=== PATIENT | male | born 1945 | race Caucasian/White ===

== ENCOUNTER 2018-04-08 05:13 | Inpatient (IN) | payer MEDICARE, SELFPAY ==
[2018-04-08] VITALS (19 sets, daily range): BP systolic 104–126; BP diastolic 55–75; PULSE 82–115; RESP 14–18; TEMP 36.6–37.7; O2SAT 94–98; BMI 25.9; BMI 26.6
--- NOTE | 2018-04-08 | COL._PTH ---
PATIENT: FREDO EMANUEL LOC: MS3 U#:[id number] AGE/SX: 73/M ROOM: PA308 RE04/08/[address]: Dr. Wilmer Tirado MD : 1945 BED: 1 DIS: 04/14/2018 SPEC #: [id number] RECD: 04/08/18 11:10 STATUS: LORRAINE REAdenike #: [id number] ROSETTA: 04/08/18 00:[address]: Wilmer Tirado DEPT: SURGICAL PATHOLOGY RECD BY: Estelle Sanches ENTERED: 04/08/18 12:39 SP TYPE: COLON OTHR DR: Dr. Teo Monsalve MD Tissues: A - Ileum, NOS B - Colon, NOS C - APPENDIX (INCIDENTAL) D - Colon Donuts E - Colon Donuts Procedures: Frozen Section (charge) Surgery Specimen Level III Surgery Specimen Level IV Surgery Specimen Level HEADER OPERATION: Laparoscopic mobilization of splenic flexure PRE-OP DIAGNOSIS: Sigmoid mass TISSUE SUBMITTED: A ? Nodule, terminal ileum adjacent to cancer, B ? Sigmoid colon, C ? Appendix, D ? Proximal donut, E ? Distal donut FROZEN SECTION DIAGNOSIS A. Nodule, terminal ileum adjacent to cancer: Negative for carcinoma. SJ:megan 04/08/18 MICROSCOPIC DIAGNOSIS A. Nodule, terminal ileum adjacent to cancer: Pieces of fibroadipose tissue with chronic inflammation. Negative for carcinoma. B. 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 Focal lymphatic invasion is noted. Six out of twenty lymph nodes positive for metastatic carcinoma. See cancer summary below. C. Appendix: Appendix, no pathologic diagnosis. Periappendiceal adipose tissue with congestion and acute inflammation. See comment. D. Proximal donut: Colonic donut, no pathologic diagnosis. E. Distal donut: No pathologic diagnosis. COLON CANCER SUMMARY: Specimen ? sigmoid colon Procedure - sigmoidectomy Specimen length ? 16 cm Tumor site ? sigmoid colon Tumor size - ~4 cm in greatest dimension. Please see comment. Macroscopic tumor perforation ? cannot be determined. See comment. Histologic type ? 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 Histologic grade ? high grade Histologic features suggestive of Microsatellite Instability: Intratumoral lymphocytic response (tumor lymphocytic response) ? mild to moderate Peritumoral lymphocytic response (Crohn-like response) - none Tumor subtype and differentiation: Mucinous tumor component ? 70% Medullary tumor component - not present High histologic grade ? poorly differentiated ? 30% Microscopic tumor extension ? tumor invades through the muscularis propria into the subserosal adipose tissue. Margins ? proximal and distal margins, free of tumor. Circumferential or mesenteric margin ? the tumor is at least 1.5 cm away from the circumferential margin. Lateral margin ? not applicable Treatment effect ? no known presurgical therapy Lymph-vascular invasion ? present. Perineural invasion ? not indentified. Tumor deposits ? indeterminate. Type of polyp in which invasive carcinoma arose ? see comment Lymph nodes: Number of lymph nodes examined - 31 Number of lymph nodes involved - 6 Distant metastasis ? not applicable Additional pathologic findings ? extensive diverticulitis with ruptured diverticula. Ancillary studies: See microsatellite instability study by IHC ([id number]) for complete details. Microsatellite instability - Negative (no loss of mismatch protein; no microsatellite instability detected). Immunohistochemistry Studies for Mismatch Repair Proteins: MLH1 - Intact nuclear positivity, tumor cells MSH2 - Intact nuclear positivity, tumor cells MSH6 - Intact nuclear positivity, tumor cells PMS2 - Intact nuclear positivity, tumor cells Mutational Analysis ? not performed PATHOLOGIC STAGE: pT3 pN2a Mx The above summary is in compliance with [employer] [place] [employer] (CAP) Cancer Protocols Checklist and [place] [employer] Committee on Cancer (AJCC), Staging Manual, 8th Ed. SJ:megan 04/15/18 COMMENT B. Open resection margin shows focal area of ulceration, inflammation and negative for carcinoma. Focal area of tubular adenomatous changes noted is adjacent to the tumor. The tumor might have started in the area of ruptured diverticula. No gross mucosal tumor is identified. Most of the tumor is present in the pericolonic adipose tissue. The largest focus of metastatic carcinoma in the lymph node measures 1.2 cm in greatest dimension. Extranodal extension is not seen. 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 C. The entire appendix is examined. This case is discussed with Dr. Tirado on 04/11/18. Case has been reviewed in consultation with Dr. Barth who concurs with the above diagnosis. IDC:AM MICROSCOPIC DESCRIPTION Slides are reviewed. GROSS DESCRIPTION A - Received fresh for frozen section diagnosis labeled with the patient's name is a specimen designated nodule terminal adjacent to cancer. The specimen consists of two pieces of leyva-pink soft tissue measuring in aggregate 1.5 x 2 x 0.3 cm. The entire specimen is submitted for frozen section diagnosis in one cassette. / SJ:megan 04/08/18 B - Received in fixative is one container labeled with the patient's name and designated sigmoid colon. The specimen consists of a segment of colon with attached pericolonic adipose tissue measuring 16 cm in length. The attached pericolonic adipose tissue measures up to 6 cm in thickness. One resection margin is stapled and the other resection margin is opened. The pericolonic adipose tissue is markedly dense and is inked black. No mucosal lesion is identified. Sections reveal multiple diverticula and many of them appear to be ruptured. The tissue adjacent to the ruptured diverticula show leyva-yellow fibroadipose, dense cut surfaces. Sections of pericolonic adipose tissue reveal a few lymph nodes. Model Builder sections are submitted in eight cassettes as follows: 1 ? resection margins, stapled resection margin is inked black, 2 & 3 ? diverticula, 4 & 5 ? area of ruptured diverticula, 6-8 ? pericolonic adipose tissue with possible lymph nodes. / SJ:megan 04/09/18 Sections of pericolonic adipose tissue reveal a mucoidy, grayish irregular mass which approximately measures 4 cm in greatest dimension. No gross connection with overlying mucosa is noted. Sections are submitted as follows: 9-11 ? possible tumor mass, 12-15 ? serosal resection margin, 16 ? one bisected lymph node, 17 ? multiple lymph nodes, 18 - one bisected lymph node, 19 ? multiple lymph nodes, 20 ? 1 bisected lymph node. / SJ:megan 04/11/18 More sections are submitted as follows: 21 ? multiple lymph nodes, 22 - multiple lymph nodes, 23 ? one bisected lymph node, 24 - one bisected lymph node, 25 - one serially sectioned lymph node. / : 04/12/18 C - Received is one container labeled with the patient's name and designated appendix. The specimen consists of an appendix measuring 5 cm in length and up to 0.6 cm in diameter. The attached periappendiceal adipose tissue measures up to 2 cm in width. The lumen is pin point. No fecalith is identified. Model Builder sections are submitted in one cassette. / : 04/08/18 The rest of the specimen is submitted in four more cassettes as follows: 2 ? rest of the appendix, 35 ? periappendiceal adipose tissue. / : 04/12/18 D - Received in fixative is one container labeled with the patient's name and designated proximal donut. The specimen consists of a donut-shaped piece of colonic tissue measuring 2.5 x 1 x 0.5 cm. A few sutures are noted. The entire specimen is submitted in one cassette. / : 04/08/18 E - Received in fixative is one container labeled with the patient's name and designated distal donut. The specimen consists of a donut-shaped piece of colonic tissue measuring 1.8 x 1.8 x 1.5 cm. No lesion is identified. Model Builder sections are submitted in one cassette. / : 04/08/18 TC:0 CPT: 84564, 33594, 96452, 34143 x3
--- NOTE | 2018-04-08 | IMM_PTH ---
PATIENT: FREDO EMANUEL LOC: MS3 U#:[id number] AGE/SX: 73/M ROOM: MS308 RE04/08/[address]: Dr. Wilmer Tirado MD : 1945 BED: 1 DIS: 04/14/2018 SPEC #: [id number] RECD: 04/12/18 13:14 STATUS: LORRAINE REQ #: [id number] ROSETTA: 04/08/18 00:[address]: Wilmer Tirado DEPT: IMMUNOHISTOCHEMISTRY RECD BY: Estelle Sanches ENTERED: 04/12/18 13:18 SP TYPE: IMMUNO OTHR DR: Dr. Teo Monsalve MD Tissues: B - Sigmoid colon biopsy Procedures: Synapto (add) MSH2 (add) MLH-1 (add) MSH6 (add) Anti-PMS2 (add) CD31 (add) CD56 (add) CHROMO (add) CK20 (add) CK8 (add) LEY-2 (add) KI-67 (add) P53 (add) FACTOR VIII (add) CDX2 (add) CK7 (initial) PHYSICIAN & [place] [id number] SPECIMEN INFORMATION: Tissue Source: B ? Sigmoid colon Clinical Info: Sigmoid mass Specimen Number: [id number] B10, B11, B17 CPT code: 85844, 54397 x19 METHODOLOGY: Deparaffinized sections of prefer/formalin-fixed tissue or PAP/DQ stained slides are incubated with monoclonal/polyclonal antibodies/oligonucleotide probes. Localization is made via biotin free immunoperoxidase method. Appropriate controls are performed and reacted as expected. Results on target cell population are indicated in the following table: RESULTS: ANTIBODY / CLONE RESULT Block B10 CK7 (OV-TL12/30) negative CK8 (85pdkpN12) positive CK20 (KS20.8) positive CDX2 ([id number]) positive CD56 (123C3.D5) negative Chromo (LK2H10) positive, focal Synapto (polyclonal) positive, focal COLON CANCER PROFILE (Prognostic Markers) Ki-67 (30-9) positive, high P53 (DO-7) negative MSH2 (25D12) positive MSH6 (44) positive MLH-1 (M1) positive PMS2 ([id number]) positive LEY-2 (SP21) positive Block B11 CD31 (VENICE/70A) positive Factor VIII (R Ag) positive Block B17 CD56 (123C3.D5) negative Chromo (LK2H10) negative Synapto (polyclonal) negative CK8 (64jgenL09) positive These tests were developed and their performance characteristics determined by [facility]. They may not have been cleared or approved by the U.S. Food and Drug Administration. The FDA has determined that such clearance or approval is not necessary. INTERPRETATION: B. 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 Focal angiolymphatic invasion is noted (block B11). Metastatic carcinoma in the lymph nodes is consistent with poorly differentiated carcinoma with signet ring cell features. Result of Microsatellite Instability Study: Negative (no loss of mismatch protein; no microsatellite instability detected). SJ:megan 04/15/18 Case has been reviewed in consultation with Dr. Barth who concurs with the above diagnosis. IDC:AM
--- NOTE | 2018-04-08 | COL._PTH ---
PATIENT: FREDO EMANUEL LOC: MS3 U#:[id number] AGE/SX: 73/M ROOM: OK308 RE04/08/[address]: Dr. Wilmer Tirado MD : 1945 BED: 1 DIS: 04/14/2018 SPEC #: [id number] RECD: 04/08/18 11:10 STATUS: LORRAINE REAdenike #: [id number] ROSETTA: 04/08/18 00:[address]: Wilmer Tirado DEPT: SURGICAL PATHOLOGY RECD BY: Estelle Sanches ENTERED: 04/08/18 12:39 SP TYPE: COLON OTHR DR: Dr. Teo Monsalve MD Tissues: A - Ileum, NOS B - Colon, NOS C - APPENDIX (INCIDENTAL) D - Colon Donuts E - Colon Donuts Procedures: Frozen Section (charge) Surgery Specimen Level III Surgery Specimen Level IV Surgery Specimen Level HEADER OPERATION: Laparoscopic mobilization of splenic flexure PRE-OP DIAGNOSIS: Sigmoid mass TISSUE SUBMITTED: A ? Nodule, terminal ileum adjacent to cancer, B ? Sigmoid colon, C ? Appendix, D ? Proximal donut, E ? Distal donut FROZEN SECTION DIAGNOSIS A. Nodule, terminal ileum adjacent to cancer: Negative for carcinoma. SJ:megan 04/08/18 MICROSCOPIC DIAGNOSIS A. Nodule, terminal ileum adjacent to cancer: Pieces of fibroadipose tissue with chronic inflammation. Negative for carcinoma. B. 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 Focal lymphatic invasion is noted. Six out of 31 lymph nodes positive for metastatic carcinoma. See cancer summary below. C. Appendix: Appendix, no pathologic diagnosis. Periappendiceal adipose tissue with congestion and acute inflammation. See comment. D. Proximal donut: Colonic donut, no pathologic diagnosis. E. Distal donut: No pathologic diagnosis. COLON CANCER SUMMARY: Specimen ? sigmoid colon Procedure - sigmoidectomy Specimen length ? 16 cm Tumor site ? sigmoid colon Tumor size - ~4 cm in greatest dimension. Please see comment. Macroscopic tumor perforation ? cannot be determined. See comment. Histologic type ? 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 Histologic grade ? high grade Histologic features suggestive of Microsatellite Instability: Intratumoral lymphocytic response (tumor lymphocytic response) ? mild to moderate Peritumoral lymphocytic response (Crohn-like response) - none Tumor subtype and differentiation: Mucinous tumor component ? 70% Medullary tumor component - not present High histologic grade ? poorly differentiated ? 30% Microscopic tumor extension ? tumor invades through the muscularis propria into the subserosal adipose tissue. Margins ? proximal and distal margins, free of tumor. Circumferential or mesenteric margin ? the tumor is at least 1.5 cm away from the circumferential margin. Lateral margin ? not applicable Treatment effect ? no known presurgical therapy Lymph-vascular invasion ? present. Perineural invasion ? not identified. Tumor deposits ? indeterminate. Type of polyp in which invasive carcinoma arose ? see comment Lymph nodes: Number of lymph nodes examined - 31 Number of lymph nodes involved - 6 Distant metastasis ? not applicable Additional pathologic findings ? extensive diverticulitis with ruptured diverticula. Ancillary studies: See microsatellite instability study by IHC ([id number]) for complete details. Microsatellite instability - Negative (no loss of mismatch protein; no microsatellite instability detected). Immunohistochemistry Studies for Mismatch Repair Proteins: MLH1 - Intact nuclear positivity, tumor cells MSH2 - Intact nuclear positivity, tumor cells MSH6 - Intact nuclear positivity, tumor cells PMS2 - Intact nuclear positivity, tumor cells Mutational Analysis ? not performed PATHOLOGIC STAGE: pT3 pN2a Mx The above summary is in compliance with [employer] [place] [employer] (CAP) Cancer Protocols Checklist and [place] Joint Committee on Cancer (AJCC), Staging Manual, 8th Ed. SJ:megan 04/15/18 SJ:megan 04/18/18 COMMENT B. Open resection margin shows focal area of ulceration, inflammation and negative for carcinoma. Focal area of tubular adenomatous changes noted is adjacent to the tumor. The tumor might have started in the area of ruptured diverticula. No gross mucosal tumor is identified. Most of the tumor is present in the pericolonic adipose tissue. The largest focus of metastatic carcinoma in the lymph node measures 1.2 cm in greatest dimension. Extranodal extension is not seen. 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 C. The entire appendix is examined. This case is discussed with Dr. Tirado on 04/11/18. Case has been reviewed in consultation with Dr. Barth who concurs with the above diagnosis. IDC:AM MICROSCOPIC DESCRIPTION Slides are reviewed. GROSS DESCRIPTION A - Received fresh for frozen section diagnosis labeled with the patient's name is a specimen designated nodule terminal adjacent to cancer. The specimen consists of two pieces of leyva-pink soft tissue measuring in aggregate 1.5 x 2 x 0.3 cm. The entire specimen is submitted for frozen section diagnosis in one cassette. / SJ:megan 04/08/18 B - Received in fixative is one container labeled with the patient's name and designated sigmoid colon. The specimen consists of a segment of colon with attached pericolonic adipose tissue measuring 16 cm in length. The attached pericolonic adipose tissue measures up to 6 cm in thickness. One resection margin is stapled and the other resection margin is opened. The pericolonic adipose tissue is markedly dense and is inked black. No mucosal lesion is identified. Sections reveal multiple diverticula and many of them appear to be ruptured. The tissue adjacent to the ruptured diverticula show leyva-yellow fibroadipose, dense cut surfaces. Sections of pericolonic adipose tissue reveal a few lymph nodes. Special Education Teaching Assistant sections are submitted in eight cassettes as follows: 1 ? resection margins, stapled resection margin is inked black, 2 & 3 ? diverticula, 4 & 5 ? area of ruptured diverticula, 6-8 ? pericolonic adipose tissue with possible lymph nodes. / SJ:megan 04/09/18 Sections of pericolonic adipose tissue reveal a mucoidy, grayish irregular mass which approximately measures 4 cm in greatest dimension. No gross connection with overlying mucosa is noted. Sections are submitted as follows: 9-11 ? possible tumor mass, 12-15 ? serosal resection margin, 16 ? one bisected lymph node, 17 ? multiple lymph nodes, 18 - one bisected lymph node, 19 ? multiple lymph nodes, 20 ? 1 bisected lymph node. / SJ:megan 04/11/18 More sections are submitted as follows: 21 ? multiple lymph nodes, 22 - multiple lymph nodes, 23 ? one bisected lymph node, 24 - one bisected lymph node, 25 - one serially sectioned lymph node. / : 04/12/18 C - Received is one container labeled with the patient's name and designated appendix. The specimen consists of an appendix measuring 5 cm in length and up to 0.6 cm in diameter. The attached periappendiceal adipose tissue measures up to 2 cm in width. The lumen is pin point. No fecalith is identified. Special Education Teaching Assistant sections are submitted in one cassette. / SJ: 04/08/18 The rest of the specimen is submitted in four more cassettes as follows: 2 ? rest of the appendix, 35 ? periappendiceal adipose tissue. / : 04/12/18 D - Received in fixative is one container labeled with the patient's name and designated proximal donut. The specimen consists of a donut-shaped piece of colonic tissue measuring 2.5 x 1 x 0.5 cm. A few sutures are noted. The entire specimen is submitted in one cassette. / : 04/08/18 E - Received in fixative is one container labeled with the patient's name and designated distal donut. The specimen consists of a donut-shaped piece of colonic tissue measuring 1.8 x 1.8 x 1.5 cm. No lesion is identified. Special Education Teaching Assistant sections are submitted in one cassette. / : 04/08/18 TC:0 CPT: 94748, 86724, 48722, 50337 x3 ADDENDUM ADDENDUM ADDENDUM ADDENDUM ADDENDUM ADDENDUM ADDENDUM 04/08/2019 10:40 ADDENDUM 04/08/2019 10:40 ADDENDUM 04/08/2019 10:40 ADDENDUM 04/08/2019 10:40 ADDENDUM 04/08/2019 10:40 NRAS AND KRAS ANALYSIS FROM [facility] KRAS extended analysis: Positive NRAS extended analysis: Negative Please see complete report in e-chart or EMR for complete details
--- NOTE | 2018-04-08 05:24 | EKG12_ITS ---
Test Reason : PRE-OP Blood Pressure : / mmHG Vent. Rate : 081 BPM Atrial Rate : 081 BPM P-R Int : 172 ms QRS Dur : 068 ms QT Int : 378 ms P-R-T Axes : 018 000 008 degrees QTc Int : 439 ms Normal sinus rhythm Normal ECG Confirmed by LUDWIN HOOVER, RYLEY ([id number]), food editor HERB ARGUETA ([id number]) on 04/11/2018 2:24:55 PM Referred By: Wilmer Tirado Confirmed By:RYLEY MASCORRO MD
[2018-04-08 06:16] LABS: Hematocrit 37.9 % (40-54); Hemoglobin 12.4 g/dl (13.0-16.5); Mean Corp Hgb Conc 32.7 g/gl (32-36); Mean Corpuscular Hgb 27.5 pg (27.0-32.0); Mean Platelet Vol. 10.3 fl (6.2-12.0); Platelet Count 320 K/mm3 (150-450); RBC Distribution Width CV 13.9 % (11.6-14.6); RBC Distribution Width SD 42.2 fl (35.1-43.9); Red Blood Count 4.51 M/mm3 (4.6-6.2)
[2018-04-08 06:21] LABS: Scan Indicated on CBC? Y/N NO
[2018-04-08] MEDS: levoFLOXacin IV 500 MG/100 ML BAG 100 MG IV (06:32)
--- NOTE | 2018-04-08 07:59 | OP.PCM_ITS ---
Report of Operation Date of Procedure: 04/08/18 Pre-Operative Diagnosis: Sigmoid mass Post-Operative Diagnosis: Same Surgery/Procedure Performed:: Cystoscopy and bilateral ureteral catheter placements Description of Surgical Findings:: 73-year-old male has a large mass in the sigmoid colon is can undergo resection by general surgery, they have asked me to place bilateral stents to help him assist with the surgery, the patient was under anesthesia in dorsal lithotomy position the penis and testicles were prepped and draped in usual sterile fashion he was uncircumcised penis is normal testicles are normal I then went into the urethra with a 21 [place] rigid cystourethroscope the entire length the urethra was normal, the sphincter is normal the prosthetic verumontanum was normal, prostate had bilateral hypertrophy which is normal small median lobe nonobstructive prostate, inside the bladder nice smooth mucosa some mild trabeculation but nothing significant, after right ureteral orifices were normal I cannulated the left ureteral orifice with a Glidewire and a Pollack catheter advanced the Pollack catheter 28 cm up into the kidney, I then cannulated the right ureteral orifice with a Glidewire and a Pollack catheter advanced the Pollack catheter about 26 cm up into the right kidney, pulled the wire out, left the Pollack catheter in place on both the right and left side, placed a Jones catheter, of note the bladder was normal and no tumors or stones seen within the bladder. We secured the Pollack catheters to bag and put a Jones catheter into the bladder patient was then turned over to general surgery to continue with his procedure. Type of Anesthesia:: General Drains: stent b/l - Admit VTE Documentation VTE Present on Admission: No VTE Mechan Device Prophylaxis: SCD's VTE Pharm Prophylaxis ordered?: No Reason prophylaxis not ordered:: Treatment Not Indicated
[2018-04-08] MEDS: Bupivacaine Mpf 0.5% 30 ML VIAL (08:18)
[2018-04-08] MEDS: Lubricating Jelly 60 GM Tube 30 GM TOPICAL (08:18)
[2018-04-08 09:41] LABS: Hemoglobin 11.7 g/dl (13.0-16.5); Mean Corp Hgb Conc 31.6 g/gl (32-36); Mean Corpuscular Hgb 26.8 pg (27.0-32.0); Mean Corpuscular Volume 84.9 fL (80-94); Mean Platelet Vol. 10.2 fl (6.2-12.0); Platelet Count 267 K/mm3 (150-450); Red Blood Count 4.36 M/mm3 (4.6-6.2); White Blood Count 12.1 K/mm3 (4.4-11.0)
[2018-04-08 09:47] LABS: Scan Indicated on CBC? Y/N NO
--- NOTE | 2018-04-08 12:04 | OP.PCM_ITS ---
Report of Operation Date of Procedure: 04/08/18 Pre-Operative Diagnosis: Sigmoid mass, presumed colon cancer Post-Operative Diagnosis: sigmoid mass - nearly obstructive, adherent to right and left pelvis, terminal ileum - frozed section of mesentery of the terminal ileum, negative for malignancy, Surgery/Procedure Performed:: Cystoscopy and bilateral ureteral catheter placements, laparoscopic mobilization of splenic flexure, laparoscopic converted to open low anterior resection with 29 CEEA stapler, appendectomy battery wrecker operator: Harrison Murrieta Type of Anesthesia:: General Anesthesiologist: Yaron Kat - ASA2 Specimen's removed: sigmoid colon, terminal iluem mesentary bx, appendix, prox and distal donuts Drains: stent b/l, NG tube, Jones - 130 urine with morfe urine in stent glove Estimated Blood Loss (mL): 250 Fluids Replaced: 3000 L Description of Procedure: The patient was brought to the operating suite. Sign in was performed verifying patient, site, procedure, position, and DVT prophylaxis with SCDs. Patient received Levaquin 750mg. Preoperative bowel prep of mechanical and antibiotic comprised of GoLYTELY and then neomycin and Flagyl 1 g 3 doses evening before was given. Following induction of general anesthetic, the patient was placed in a modified lithotomy position and care being taken to or by pressure points in the legs and arms. An upper body strap was placed and a upper body warmer was placed. A Jones catheter was placed. A rectal washout was performed with dilute Betadine solution. Cystoscopy was performed and bilateral ureteral catheters were placed by Dr. Ureña under separate dictation. The patient?s abdomen and perineal area were then prepped and draped in the usual fashion. Timeout was performed verifying patient, site, position. Local anesthetic was injected above the umbilicus. Incision made and dissection carried down to the umbilical root fascia. 2 stay sutures were placed. Incision made in the fascia, the peritoneum entered under direct visualization. A 10 mm Carmichael trocar was inserted and secured with the stay sutures. Pneumoperitoneum to 15 mmHg was insufflated. 2 5mm ports were placed in the lower midline and later in the left paramedian position Adhesions were noted in the midline just below the level of the umbilicus and a were taken down using Harmonic scalpel. Visual inspection revealed a normal-appearing liver with no significant abnormalities. The large bulky tumor was seen in the pelvis with adhesions to the left lower quadrant, the right lower quadrant, the anterior midline and a loop of small bowel down towards the terminal ileal area. Given the fact the tumor was so large it does not be able to be completed laparoscopically, I elected to perform mobilization of splenic flexure. This was also challenging given the patient?s body habitus. Part way through mobilization of splenic flexure, a venous bleeder was encountered at which point I elected to open. A midline laparotomy was made encompassing the midline ports and extended down to the fascia. The fascia was opened in the midline. Laparotomy pack was placed and left upper quadrant. The area was then visualized and a venous bleeder at the splenic flexure was identified, clipped proximally and distally. The bleeding part and divided. The splenic flexure was then fully mobilized using harmonic scalpel and blunt and sharp dissection. Dissection was carried down along the left pelvic sidewall including the descending colon to the proximal sigmoid. The loop of terminal ileum which was adherent to the superior right aspect of the colon mass was bluntly dissected off the colon. Along the small bowel mesentery. There was an area of thickened inflammation. This was excised and sent for frozen section. Frozen section demonstrated no malignancy. Cautery was then used to release the adhesions to the lower midline and to help create a plane laterally, but a significant amount of the dissection needed to be done bluntly. Given the degree of inflammation and the inability to visualize around this large mass. Once this was completed laterally, mobilization the avascular plane was undertaken from the ascending colon down to the area of the proximal sigmoid colon. At this point due to the size of the mass encountered, the descending colon, sigmoid was transected with a echelon stapler. The sigmoid music colon was divided sequentially using harmonic scalpel, but then to the point where the large mass was encountered. This could not be further easily mobilized. The mass extended up to the bifurcation of the aorta nearly, with the mass partially retracted sequential division, with division and ligation of the vessels going to the tumor from the inferior mesenteric artery and vein were isolated, divided and ligated with 0 Vicryl ties and clips and divided with Harmonic scalpel. With the mass now being able to be further released down into the pelvis, the distal aspect of the colon was divided with 2 firings of a contour stapler. The specimen was passed off, the distal margin of the passed off. Specimen was opened and demonstrated normal-appearing colon. I performed an appendectomy dividing the mesoappendix with the Harmonic scalpel and the base of the appendix with the regular load stapler. The appendix was removed the right lower quadrant port site. A 29 mm CEA circular stapler anvil was then placed in the descending colon region and a 2-0 Prolene pursestring suture was used to close the bowel around the anvil. The bowel did not easily make it to the pelvis, so therefore, additional mobilization splenic flexure using Harmonic Scalpel was completed with the colon being completely mobilized off to rectus fascia/left kidney. This allowed good reaching of the bowel to the pelvis without tension At this point, I proceeded down to the rectum. Rigid proctoscopy was performed after flooding the pelvis with saline. Insufflation demonstrated no leak at the rectal staple line. The staple line was felt to be approximately 12 cm. Next the 29 CEA stapler was lubricated and placed through the rectum up to the staple line. The spike was then opened just anterior to the previous echelon stapler line and the anvil properly seated onto the stapler and brought down to mid gap. The stapler was fired released and withdrawn from the rectum. The proximal and distal doughnuts were noted to be intact. Repeat proctoscopy was again performed again with the pelvis being flooded with saline. Air left in the rectum with insufflation and there was no intra-abdominal leakage noted. The anastomosis was noted to be at 13 cm from the anal verge Gown and gloves were changed. The pelvis was irrigated and aspirated until clear. The midline fascia was closed with a running 0 PDS suture. Subcutaneous skin was irrigated. Skin was closed with carlos. The patient was taken from lithotomy position and placed in the standard supine position. The Jones was left in place. The ureteral stents were removed and both stents were intact. All sponge and instrument counts were correct. The patient was extubated. The patient was brought to recovery room in stable condition. Urine - 130 - Admit VTE Documentation VTE Present on Admission: No VTE Mechan Device Prophylaxis: SCD's VTE Pharm Prophylaxis ordered?: Yes
[2018-04-08] MEDS: HYDROmorphone PCA 0.2 MG/ML 100 ML BAG 20 MG IV (13:54)
[2018-04-08] MEDS: Lactated Ringers 1,000 ML 100 ML IV (13:55)
[2018-04-09] VITALS (23 sets, daily range): BP systolic 84–118; BP diastolic 50–69; PULSE 86–116; RESP 16–18; TEMP 36.2–37.4; O2SAT 93–98
[2018-04-09] MEDS: Lactated Ringers 1,000 ML 100 ML IV ×3 (00:30→17:07)
[2018-04-09 06:20] LABS: ALB/GLOB Ratio 0.5 RATIO (0.9-2.4); AST(SGOT) 26 U/L (15-37); Alanine Aminotransfer ALT/SGPT 29 U/L (16-61); Albumin, Serum 1.9 g/dL (3.2-5.0); Alkaline Phosphatase 83 U/L (45-117); Anion Gap 9 (5-15); BUN 13 mg/dL (7-18); BUN/Creat Ratio 15.8 RATIO (10-20); Chloride 102 mmol/L (98-107); Creatinine, Serum 0.82 mg/dL (0.70-1.30); EST Glomerular Filtration Rate 97 mL/min (>60); Est Glom Filt Rate - Afr Amer 118 mL/min (>60); Estimated Creatinine Clearance 73.48 ml/min; Globulin 4.1 g/dL (2.2-4.2); Glucose 167 mg/dL (74-106); Potassium 3.9 mmol/L (3.5-5.1); Sodium Level 141 mmol/L (136-145)
[2018-04-09 06:25] LABS: Absolute Lymphocyte Count 1.21 X10^3/ul (0.83-4.51); Absolute Neutrophil Count 10.3 X10^3/uL (2.0-7.7); Basophil# 0.02 X10^3/uL; Basophil% 0.1 % (0-1); Eosinophil# 0.01 X10^3/uL; Eosinophils% 0.1 % (0-5); Hematocrit 35.2 % (40-54); Lymphocyte # 1.21 X10^3/ul (4.0); Mean Corp Hgb Conc 31.3 g/gl (32-36); Mean Corpuscular Hgb 26.8 pg (27.0-32.0); Mean Corpuscular Volume 85.9 fL (80-94); Mean Platelet Vol. 10.3 fl (6.2-12.0); Monocyte# 1.89 X10^3/uL; Monocyte% 14.1 % (0-10); Neutrophil # 10.28 X10^3/uL (2.7-7.7); Neutrophil % 76.6 % (47-70); Platelet Count 352 K/mm3 (150-450); RBC Distribution Width CV 14.4 % (11.6-14.6); RBC Distribution Width SD 45.9 fl (35.1-43.9); White Blood Count 13.4 K/mm3 (4.4-11.0)
[2018-04-09 06:26] LABS: Differential Indicated SCAN CRITERIA MET; POSITIVE COUNT NO; POSITIVE DIFFERENTIAL YES; POSITIVE MORPHOLOGY NO
--- NOTE | 2018-04-09 06:49 | NURSING ---
Attempted to remove 2L NC per Dr. Tirado and pt's O2 sats dropped to high 80s on room air. O2 reapplied and turned down to 1L. Pt currently at 96%. IS encouraged and movement also encouraged for today.
[2018-04-09 07:02] LABS: Differential Comment SCANNED
[2018-04-09] MEDS: levoFLOXacin IV 750 MG/150 ML BAG 100 MG IV (10:29)
[2018-04-09] MEDS: Enoxaparin 40 MG/0.4 ML Syringe SC (10:32)
--- NOTE | 2018-04-09 10:37 | CASEMGMT ---
SEE RN CM LINK: D/C PLAN: Home. No needs identified at this time. -Intro Role of Cm to pt. Pt participated in assessment and answered all questions appropriately. Dany PHILLIPSN RN CM
--- NOTE | 2018-04-09 10:54 | CASEMGMT ---
FRED RN CM LINK: D/C PLAN: Undetermined. -Intro Role of Cm to pt. Pt participated in assessment and answered all questions appropriately. CM to continue to follow for any home-going needs and plan for a safe discharge. Dany BSN RN CM
[2018-04-09] MEDS: Lisinopril 20 MG Tablet PO (11:36)
[2018-04-09] MEDS: Metoprolol(XL)Succ 50 MG Tablet PO (11:41)
[2018-04-09] MEDS: Lactated Ringers 500 ML 999 ML IV ×2 (14:50→23:27)
[2018-04-09 16:10] LABS: Pathologist Review Reviewed
--- NOTE | 2018-04-09 18:19 | PCM.PN.SRG ---
Subjective: incisional pain but otherwise doing well - Physical Exam General: Alert, Oriented x3, Cooperative Lungs: Clear to auscultation, Normal air movement Cardiovascular: Regular rate, Regular Rhythm Abdomen: Soft, Bowel Sounds Not Present, Tender - along incision, Jones catheter with tea-colored urine Vital Signs Temp Pulse Resp BP Pulse Ox 98.9 F 109 H 18 109/63 93 04/09/18 18:11 04/09/18 18:11 04/09/18 18:11 04/09/18 18:11 04/09/18 18:11 Oxygen Flow Rate (L/min) 1 Oxygen Delivery Method Nasal Cannula Weight: 74.979 kg Body Mass Index (BMI) 26.6 Intake and Output for Last 24 Hours 04/07/18 04/08/18 04/09/18 23:59 23:59 23:59 Intake Total 3906 / 3906 3154 / 3154 Output Total 455 / 455 1090 / 1090 Balance 3451 / 3451 2064 / 2064 Laboratory Tests Past 24 Hrs 04/09/18 04/09/18 05:22 05:22 WBC 13.4 H RBC 4.10 L Hgb 11.0 L Hct 35.2 L MCV 85.9 MCH 26.8 L MCHC 31.3 L RDW 14.4 RDW Differential 45.9 H Plt Count 352 MPV 10.3 Immature Gran % (Auto) 0.100 Neut % (Auto) 76.6 H Lymph % (Auto) 9.0 L [place] % (Auto) 14.1 H Eos % (Auto) 0.1 Baso % (Auto) 0.1 Absolute Neuts (auto) 10.3 H Absolute Lymphs (auto) 1.21 Total Counted Not Reportable Differential Comment SCANNED Diff Path Review Reviewed Sodium 141 Potassium 3.9 Chloride 102 Carbon Dioxide 30.0 Anion Gap 9 BUN 13 Creatinine 0.82 Estim Creat Clear Calc 73.48 Est GFR (MDRD) Af Amer 118 Est GFR (MDRD) Non-Af 97 BUN/Creatinine Ratio 15.8 Glucose 167 H Calcium 8.0 L Total Bilirubin 0.60 AST 26 ALT 29 Alkaline Phosphatase 83 Total Protein 6.0 L Albumin 1.9 L Globulin 4.1 Albumin/Globulin Ratio 0.5 L Medical Necessity - Tobacco Use Smoking Status: Current every day smoker Tobacco Use: Chew Assessment/Plan POD # 1 s/p laparoscopic converted to open low anterior resection/sigmoidectomy with splenic flexure mobilization and appendectomy for large fungating sigmoid mass laboratory studies demonstrate a slight decrease in hemoglobin, consistent with the expected blood loss from this complicated surgery. Patient's white blood cell count slightly elevated. For now we will maintain NG tube placement to low intermittent suction. Given the duration and complexity of the case and lack of bowel sounds. I'm comfortable clamping NG tube for patient medications. Patient somewhat hypotensive during the day, we'll bolus IV fluids. Follow urine output, which decreased slightly during the afternoon. Anticipate some degree of third spacing due to the difficulty of the surgery. Will encourage out of bed in chair and ambulation and use of incentive spirometry. We'll maintain SCDs with Lovenox due to risk of DVT
[2018-04-10] VITALS (17 sets, daily range): BP systolic 102–132; BP diastolic 52–75; PULSE 74–89; RESP 16–18; TEMP 36.1–37.1; O2SAT 83–97
[2018-04-10] MEDS: Lactated Ringers 1,000 ML 100 ML IV ×2 (04:56→16:10)
[2018-04-10] MEDS: 0.9% NaCl Peripheral Flush Adult/Peds IV (04:57)
[2018-04-10 06:58] LABS: Absolute Lymphocyte Count 1.24 X10^3/ul (0.83-4.51); Absolute Neutrophil Count 11.4 X10^3/uL (2.0-7.7); Basophil# 0.05 X10^3/uL; Basophil% 0.3 % (0-1); Eosinophil# 0.43 X10^3/uL; Eosinophils% 2.9 % (0-5); Hematocrit 33.3 % (40-54); Hemoglobin 10.1 g/dl (13.0-16.5); Lymphocyte # 1.24 X10^3/ul (4.0); Lymphocyte % 8.3 % (19-41); Mean Corp Hgb Conc 30.3 g/gl (32-36); Mean Corpuscular Hgb 27.6 pg (27.0-32.0); Mean Platelet Vol. 10.2 fl (6.2-12.0); Monocyte# 1.74 X10^3/uL; Monocyte% 11.6 % (0-10); Neutrophil # 11.39 X10^3/uL (2.7-7.7); Neutrophil % 76.3 % (47-70); Platelet Count 332 K/mm3 (150-450); RBC Distribution Width CV 14.6 % (11.6-14.6); RBC Distribution Width SD 47.3 fl (35.1-43.9); Red Blood Count 3.66 M/mm3 (4.6-6.2); White Blood Count 14.9 K/mm3 (4.4-11.0)
[2018-04-10 06:59] LABS: Differential Indicated SCAN CRITERIA MET; POSITIVE COUNT NO; POSITIVE DIFFERENTIAL YES; POSITIVE MORPHOLOGY YES
[2018-04-10 07:11] LABS: ALB/GLOB Ratio 0.4 RATIO (0.9-2.4); AST(SGOT) 26 U/L (15-37); Alanine Aminotransfer ALT/SGPT 25 U/L (16-61); Albumin, Serum 1.7 g/dL (3.2-5.0); Alkaline Phosphatase 81 U/L (45-117); Anion Gap 6 (5-15); BUN 17 mg/dL (7-18); BUN/Creat Ratio 22.6 RATIO (10-20); Calcium,Total 7.8 mg/dL (8.5-10.1); Chloride 104 mmol/L (98-107); Creatinine, Serum 0.75 mg/dL (0.70-1.30); EST Glomerular Filtration Rate 108 mL/min (>60); Est Glom Filt Rate - Afr Amer 131 mL/min (>60); Estimated Creatinine Clearance 60.26 ml/min; Globulin 4.4 g/dL (2.2-4.2); Glucose 127 mg/dL (74-106); Protein, Total 6.1 g/dL (6.4-8.2); Sodium Level 140 mmol/L (136-145)
[2018-04-10] MEDS: Metoprolol(XL)Succ 50 MG Tablet PO (09:23)
[2018-04-10] MEDS: Enoxaparin 40 MG/0.4 ML Syringe SC (09:23)
[2018-04-10] MEDS: HYDROmorphone PCA 0.2 MG/ML 100 ML BAG 20 MG IV (17:27)
--- NOTE | 2018-04-10 18:32 | PN.SURG_ITS ---
Subjective: pain improved, - Physical Exam General: Alert, Oriented x3 Lungs: Clear to auscultation, Normal air movement Cardiovascular: Regular rate, Regular Rhythm Abdomen: Soft, Non Tender, Hypoactive Bowel Sounds, Tender - incisions Vital Signs Temp Pulse Resp BP Pulse Ox 97.2 F L 81 18 111/69 95 04/10/18 16:00 04/10/18 16:00 04/10/18 16:44 04/10/18 16:00 04/10/18 16:10 Oxygen Flow Rate (L/min) 2 Oxygen Delivery Method Room Air Weight: 74.979 kg Body Mass Index (BMI) 26.6 Intake and Output for Last 24 Hours 04/08/18 04/09/18 04/10/18 23:59 23:59 23:59 Intake Total 3906 / 3906 3154 / 3154 2608 / 2608 Output Total 455 / 455 1090 / 1090 1040 / 1040 Balance 3451 / 3451 2064 / 2064 1568 / 1568 Laboratory Tests Past 24 Hrs 04/10/18 04/10/18 06:32 06:32 WBC 14.9 H RBC 3.66 L Hgb 10.1 L Hct 33.3 L MCV 91.0 MCH 27.6 MCHC 30.3 L RDW 14.6 RDW Differential 47.3 H Plt Count 332 MPV 10.2 Immature Gran % (Auto) 0.600 Neut % (Auto) 76.3 H Lymph % (Auto) 8.3 L [place] % (Auto) 11.6 H Eos % (Auto) 2.9 Baso % (Auto) 0.3 Absolute Neuts (auto) 11.4 H Absolute Lymphs (auto) 1.24 Total Counted Not Reportable Diff Path Review May foll Sodium 140 Potassium 4.0 Chloride 104 Carbon Dioxide 30.0 Anion Gap 6 BUN 17 Creatinine 0.75 Estim Creat Clear Calc 60.26 Est GFR (MDRD) Af Amer 131 Est GFR (MDRD) Non-Af 108 BUN/Creatinine Ratio 22.6 H Glucose 127 H Calcium 7.8 L Total Bilirubin 0.30 AST 26 ALT 25 Alkaline Phosphatase 81 Total Protein 6.1 L Albumin 1.7 L Globulin 4.4 H Albumin/Globulin Ratio 0.4 L Medical Necessity - Tobacco Use Smoking Status: Current every day smoker Tobacco Use: Chew Assessment/Plan POD # 2 s/p laparoscopic converted to open low anterior resection/sigmoidectomy with splenic flexure mobilization and appendectomy for large fungating sigmoid mass laboratory studies demonstrate a slight decrease in hemoglobin, consistent with the expected blood loss from this complicated surgery. Patient's white blood cell count slightly elevated. For now we will maintain NG tube placement to low intermittent suction. Given the duration and complexity of the case and lack of bowel sounds. I'm comfortable clamping NG tube for patient medications. Patient somewhat hypotensive during the day, we'll bolus IV fluids. urine clearing-will DC Jones catheterFollow urine output, which decreased slightly during the afternoon. Anticipate some degree of third spacing due to the difficulty of the surgery. Will encourage out of bed in chair and ambulation and use of incentive spirometry. We'll maintain SCDs with Lovenox due to risk of DVT
[2018-04-11] VITALS (10 sets, daily range): BP systolic 127–147; BP diastolic 78–84; PULSE 74–84; RESP 15–18; TEMP 36.6–37.1; O2SAT 93–98
[2018-04-11] MEDS: Lactated Ringers 1,000 ML 100 ML IV (01:50)
[2018-04-11] MEDS: BENZOCAINE/MENTHOL 1 LOZENGE MUCOUS MEM (06:37)
--- NOTE | 2018-04-11 06:37 | NURSING ---
Nasogastric tube removed at this time, patient tolerated well.
[2018-04-11 07:09] LABS: Absolute Lymphocyte Count 1.36 X10^3/ul (0.83-4.51); Absolute Neutrophil Count 10.8 X10^3/uL (2.0-7.7); Basophil# 0.04 X10^3/uL; Basophil% 0.3 % (0-1); Eosinophil# 0.78 X10^3/uL; Eosinophils% 5.5 % (0-5); Hematocrit 31.7 % (40-54); Hemoglobin 9.7 g/dl (13.0-16.5); Lymphocyte # 1.36 X10^3/ul (4.0); Lymphocyte % 9.6 % (19-41); Mean Corp Hgb Conc 30.6 g/gl (32-36); Mean Corpuscular Hgb 26.9 pg (27.0-32.0); Mean Corpuscular Volume 87.8 fL (80-94); Mean Platelet Vol. 9.5 fl (6.2-12.0); Monocyte# 1.07 X10^3/uL; Monocyte% 7.6 % (0-10); Neutrophil # 10.79 X10^3/uL (2.7-7.7); Neutrophil % 76.5 % (47-70); Platelet Count 337 K/mm3 (150-450); RBC Distribution Width CV 14.5 % (11.6-14.6); RBC Distribution Width SD 46.6 fl (35.1-43.9); Red Blood Count 3.61 M/mm3 (4.6-6.2); White Blood Count 14.1 K/mm3 (4.4-11.0)
[2018-04-11 07:13] LABS: POSITIVE COUNT NO; POSITIVE DIFFERENTIAL NO; POSITIVE MORPHOLOGY NO
[2018-04-11 07:33] LABS: ALB/GLOB Ratio 0.4 RATIO (0.9-2.4); AST(SGOT) 31 U/L (15-37); Alanine Aminotransfer ALT/SGPT 26 U/L (16-61); Albumin, Serum 1.8 g/dL (3.2-5.0); Alkaline Phosphatase 93 U/L (45-117); Anion Gap 5 (5-15); BUN 16 mg/dL (7-18); BUN/Creat Ratio 25.6 RATIO (10-20); Calcium,Total 7.8 mg/dL (8.5-10.1); Chloride 102 mmol/L (98-107); Creatinine, Serum 0.62 mg/dL (0.70-1.30); EST Glomerular Filtration Rate 134 mL/min (>60); Est Glom Filt Rate - Afr Amer 162 mL/min (>60); Estimated Creatinine Clearance 60.26 ml/min; Globulin 4.3 g/dL (2.2-4.2); Glucose 110 mg/dL (74-106); Potassium 3.8 mmol/L (3.5-5.1); Protein, Total 6.1 g/dL (6.4-8.2); Sodium Level 140 mmol/L (136-145)
[2018-04-11] MEDS: Metoprolol(XL)Succ 50 MG Tablet PO (09:18)
[2018-04-11] MEDS: Lisinopril 20 MG Tablet PO (09:18)
[2018-04-11] MEDS: Enoxaparin 40 MG/0.4 ML Syringe SC (09:18)
[2018-04-11] MEDS: Ondansetron 4 MG/2 ML Vial IV ×2 (12:37→22:52)
--- NOTE | 2018-04-11 18:04 | PCM.PN.SRG ---
Subjective: Vomited, no flatus - Physical Exam General: Alert, Oriented x3 Lungs: Clear to auscultation, Normal air movement Cardiovascular: Regular rate, Regular Rhythm Abdomen: Soft, Non Tender, Hypoactive Bowel Sounds Vital Signs Temp Pulse Resp BP Pulse Ox 98.8 F 74 18 142/78 H 98 04/11/18 12:00 04/11/18 12:00 04/11/18 12:00 04/11/18 12:00 04/11/18 12:00 Oxygen Flow Rate (L/min) 2 Oxygen Delivery Method Nasal Cannula Weight: 74.979 kg Body Mass Index (BMI) 26.6 Intake and Output for Last 24 Hours 04/09/18 04/10/18 04/11/18 23:59 23:59 23:59 Intake Total 3154 / 3154 3138 / 3138 1017 / 1017 Output Total 1090 / 1090 1440 / 1440 700 / 700 Balance 2064 / 2064 1698 / 1698 317 / 317 Laboratory Tests Past 24 Hrs 04/11/18 04/11/18 06:50 06:50 WBC 14.1 H RBC 3.61 L Hgb 9.7 L Hct 31.7 L MCV 87.8 MCH 26.9 L MCHC 30.6 L RDW 14.5 RDW Differential 46.6 H Plt Count 337 MPV 9.5 Immature Gran % (Auto) 0.500 Neut % (Auto) 76.5 H Lymph % (Auto) 9.6 L [place] % (Auto) 7.6 Eos % (Auto) 5.5 H Baso % (Auto) 0.3 Absolute Neuts (auto) 10.8 H Absolute Lymphs (auto) 1.36 Total Counted Not Reportable Sodium 140 Potassium 3.8 Chloride 102 Carbon Dioxide 33.0 H Anion Gap 5 BUN 16 Creatinine 0.62 L Estim Creat Clear Calc 60.26 Est GFR (MDRD) Af Amer 162 Est GFR (MDRD) Non-Af 134 BUN/Creatinine Ratio 25.6 H Glucose 110 H Calcium 7.8 L Total Bilirubin 0.40 AST 31 ALT 26 Alkaline Phosphatase 93 Total Protein 6.1 L Albumin 1.8 L Globulin 4.3 H Albumin/Globulin Ratio 0.4 L Medical Necessity - Tobacco Use Smoking Status: Current every day smoker Tobacco Use: Chew Assessment/Plan POD # 3 s/p laparoscopic converted to open low anterior resection/sigmoidectomy with splenic flexure mobilization and appendectomy for large fungating sigmoid mass laboratory studies demonstrate a slight decrease in hemoglobin, consistent with the expected blood loss from this complicated surgery. Patient's white blood cell count slightly elevated. NG tube removed, patient vomited. Zofran not very helpful, will try compazine. repeat labs and Xray in am. urine clearing- appropriate I&O's Will encourage out of bed in chair and ambulation and use of incentive spirometry. We'll maintain SCDs with Lovenox due to risk of DVT
[2018-04-11] MEDS: proCHLORPERazine 10 MG/2 ML Vial 5 MG IV (19:28)
[2018-04-12] VITALS (14 sets, daily range): BP systolic 122–144; BP diastolic 66–84; PULSE 71–98; RESP 16–18; TEMP 36.8–37.1; O2SAT 97–100
[2018-04-12] MEDS: proCHLORPERazine 10 MG/2 ML Vial 5 MG IV ×2 (02:40→12:52)
--- NOTE | 2018-04-12 05:00 | RAD_ITS ---
STUDY: X-RAY - ABDOMEN/PELVIS REASON FOR EXAM: Male, 73 years old. Abdominal distention. TECHNIQUE: AP supine and upright views of the abdomen and pelvis. COMPARISON: None. FINDINGS: Increased markings at the lung bases suggestive of bibasilar atelectasis slightly worse on the right side. There is a paralytic ileus of the small intestine with mild gaseous distention. Small amount of gas is seen in the transverse colon. I suspect to linear collections of gas in the upper left psoas region most likely secondary to recent intra-abdominal surgery. The visualized liver, spleen and kidneys are grossly normal in size and morphology. Metallic sutures are seen overlying the lower mid abdomen in keeping with prior surgery. There are degenerative changes of the visualized lumbar spine. RAD/Abd Inc Decub and/or Erect IMPRESSION: Findings suggestive of ileus pattern of the small intestine with a small amount of gas in the transverse colon. Follow-up is recommended. Electronically Signed: Soren Tabares MD at 8:25 EDT Tel [phone], Service support ,
[2018-04-12 06:36] LABS: ALB/GLOB Ratio 0.4 RATIO (0.9-2.4); AST(SGOT) 39 U/L (15-37); Alanine Aminotransfer ALT/SGPT 29 U/L (16-61); Albumin, Serum 1.9 g/dL (3.2-5.0); Alkaline Phosphatase 109 U/L (45-117); Anion Gap 6 (5-15); BUN 14 mg/dL (7-18); Chloride 103 mmol/L (98-107); Creatinine, Serum 0.61 mg/dL (0.70-1.30); EST Glomerular Filtration Rate 139 mL/min (>60); Est Glom Filt Rate - Afr Amer 168 mL/min (>60); Estimated Creatinine Clearance 60.26 ml/min; Globulin 4.4 g/dL (2.2-4.2); Glucose 171 mg/dL (74-106); Potassium 3.8 mmol/L (3.5-5.1); Protein, Total 6.3 g/dL (6.4-8.2); Sodium Level 142 mmol/L (136-145)
[2018-04-12 06:37] LABS: Absolute Lymphocyte Count 1.46 X10^3/ul (0.83-4.51); Absolute Neutrophil Count 14.8 X10^3/uL (2.0-7.7); Basophil# 0.04 X10^3/uL; Basophil% 0.2 % (0-1); Eosinophils% 2.2 % (0-5); Hematocrit 36.9 % (40-54); Hemoglobin 11.4 g/dl (13.0-16.5); Lymphocyte # 1.46 X10^3/ul (4.0); Mean Corp Hgb Conc 30.9 g/gl (32-36); Mean Corpuscular Hgb 26.8 pg (27.0-32.0); Mean Corpuscular Volume 86.6 fL (80-94); Mean Platelet Vol. 9.8 fl (6.2-12.0); Monocyte# 1.53 X10^3/uL; Monocyte% 8.4 % (0-10); Neutrophil # 14.77 X10^3/uL (2.7-7.7); Neutrophil % 80.7 % (47-70); Platelet Count 471 K/mm3 (150-450); RBC Distribution Width CV 14.5 % (11.6-14.6); RBC Distribution Width SD 45.4 fl (35.1-43.9); Red Blood Count 4.26 M/mm3 (4.6-6.2); White Blood Count 18.3 K/mm3 (4.4-11.0)
[2018-04-12 06:47] LABS: Differential Indicated SCAN CRITERIA MET; POSITIVE COUNT NO; POSITIVE DIFFERENTIAL YES; POSITIVE MORPHOLOGY NO
[2018-04-12 06:56] LABS: Differential Comment SCANNED; Platelet Estimate SLT INC (ADEQ)
--- NOTE | 2018-04-12 08:23 | CT_ITS ---
STUDY: CT ABDOMEN AND PELVIS WITH CONTRAST REASON FOR EXAM: Male, 73 years old. Status post sigmoid resection. History of colon cancer. RADIATION DOSAGE (If Supplied By Facility): CTDIvol = ( 11.06 ) mGy, DLP = ( 588.64 ) mGycm TECHNIQUE: Transaxial images were obtained from the dome of the diaphragm to the symphysis pubis with oral contrast. 15ML ml of Gastrografin contrast was administered. Sagittal and coronal images were reconstructed. Individualized dose optimization techniques were used for this CT. COMPARISON: None. FINDINGS: Small bilateral pleural effusions with bibasilar atelectasis and/or early infiltrates. The visualized portions of the heart are within normal limits. Perihepatic and perisplenic fluid. Normal liver. There are surgical clips in the gallbladder fossa consistent with a prior cholecystectomy. Normal spleen. Normal pancreas. Normal bilateral adrenal glands. Normal right kidney. Normal left kidney. Normal visualized stomach. Mildly distended fluid-filled small bowel loops. There is evidence of thickening of the small bowel loops in the distal jejunum and ileum in the right lower quadrant. Small amount of fecal material is seen in the colon. A small bowel obstruction should be ruled out. Prior sigmoid resection with anastomosis in the distal sigmoid colon. The appendix is visualized and appears normal. Normal abdominal aorta. Normal inferior vena cava. Increased markings in the mesenteric fat as well as both perinephric spaces. Postsurgical changes are seen in the left lower quadrant and hemipelvis secondary to sigmoid resection and anastomosis. Air is seen within the urinary bladder most likely secondary to prior Jones catheter placement. There is a right-sided inguinal hernia containing adipose tissue. There are degenerative changes of the visualized lumbar spine. CT/Abdomen/Pel W ORAL Cont Only IMPRESSION: Final suggestive of a least a partial small bowel obstruction with thickened small bowel loops in the distal jejunum and ileum. Postsurgical changes in the rectosigmoid colon as well as increased markings in the mesentery most likely secondary to the recent surgical procedure. Ascites. Electronically Signed: Soren Tabares MD at 11:38 EDT Tel [phone], Service support ,
--- NOTE | 2018-04-12 08:30 | PN.SURG_ITS ---
Subjective: feeling better, passed gas over night - Physical Exam General: Alert, Oriented x3, Cooperative Lungs: Clear to auscultation, Normal air movement Cardiovascular: Regular rate, Regular Rhythm Abdomen: Soft, Non Tender, Hypoactive Bowel Sounds, Distended - mildly Vital Signs Temp Pulse Resp BP Pulse Ox 98.6 F 82 18 144/78 H 100 04/12/18 03:55 04/12/18 03:55 04/12/18 07:00 04/12/18 03:55 04/12/18 07:00 Oxygen Flow Rate (L/min) 2 Oxygen Delivery Method Nasal Cannula Weight: 74.979 kg Body Mass Index (BMI) 26.6 Intake and Output for Last 24 Hours 04/10/18 04/11/18 04/12/18 23:59 23:59 23:59 Intake Total 3138 / 3138 1467 / 1467 706 / 706 Output Total 1440 / 1440 900 / 900 650 / 650 Balance 1698 / 1698 567 / 567 56 / 56 Laboratory Tests Past 24 Hrs 04/12/18 04/12/18 06:00 06:00 WBC 18.3 H RBC 4.26 L Hgb 11.4 L Hct 36.9 L MCV 86.6 MCH 26.8 L MCHC 30.9 L RDW 14.5 RDW Differential 45.4 H Plt Count 471 H MPV 9.8 Immature Gran % (Auto) 0.500 Neut % (Auto) 80.7 H Lymph % (Auto) 8.0 L [place] % (Auto) 8.4 Eos % (Auto) 2.2 Baso % (Auto) 0.2 Absolute Neuts (auto) 14.8 H Absolute Lymphs (auto) 1.46 Total Counted Not Reportable Differential Comment SCANNED Platelet Estimate SLT INC Sodium 142 Potassium 3.8 Chloride 103 Carbon Dioxide 33.0 H Anion Gap 6 BUN 14 Creatinine 0.61 L Estim Creat Clear Calc 60.26 Est GFR (MDRD) Af Amer 168 Est GFR (MDRD) Non-Af 139 BUN/Creatinine Ratio 23.0 H Glucose 171 H Calcium 8.0 L Total Bilirubin 0.50 AST 39 H ALT 29 Alkaline Phosphatase 109 Total Protein 6.3 L Albumin 1.9 L Globulin 4.4 H Albumin/Globulin Ratio 0.4 L Medical Necessity - Tobacco Use Smoking Status: Current every day smoker Tobacco Use: Chew Assessment/Plan POD # 4 s/p laparoscopic converted to open low anterior resection/sigmoidectomy with splenic flexure mobilization and appendectomy for large fungating sigmoid mass laboratory studies demonstrate a slight decrease in hemoglobin, consistent with the expected blood loss from this complicated surgery. Patient's white blood cell count slightly elevated. NG tube removed, patient vomited last night Zofran not very helpful, will try compazine. Xray demonstrated a mild ileus pattern and a sqmall abmount of free are. afebrile but WBC coount increasing - will check CT scan with oral contrast urine clearing- appropriate I&O's Will encourage out of bed in chair and ambulation and use of incentive spirometry. We'll maintain SCDs with Lovenox due to risk of DVT
--- NOTE | 2018-04-12 09:20 | NURSING ---
This nurse instructed pt on drinking oral contrast. Understands instructions. Started drinking at 0900 as indicated on bottle. Did use urinal and walk in verma and then to chair. Sitting up in chair.
[2018-04-12 10:39] LABS: Pathologist Review Reviewed
[2018-04-12] MEDS: Enoxaparin 40 MG/0.4 ML Syringe SC (11:35)
[2018-04-12] MEDS: 0.9% NaCl Peripheral Flush Adult/Peds IV ×2 (11:35→19:52)
[2018-04-12] MEDS: Ondansetron 4 MG/2 ML Vial IV ×2 (11:35→19:52)
[2018-04-12] MEDS: Lisinopril 20 MG Tablet PO (13:49)
[2018-04-12] MEDS: Metoprolol(XL)Succ 50 MG Tablet PO (13:49)
[2018-04-13] VITALS (11 sets, daily range): BP systolic 109–136; BP diastolic 65–80; PULSE 70–76; RESP 16–18; TEMP 36.8–37.7; O2SAT 92–98
[2018-04-13 07:59] LABS: Absolute Lymphocyte Count 1.14 X10^3/ul (0.83-4.51); Absolute Neutrophil Count 9.7 X10^3/uL (2.0-7.7); Basophil# 0.02 X10^3/uL; Basophil% 0.2 % (0-1); Eosinophil# 0.51 X10^3/uL; Eosinophils% 4.1 % (0-5); Hematocrit 33.4 % (40-54); Hemoglobin 10.5 g/dl (13.0-16.5); Lymphocyte # 1.14 X10^3/ul (4.0); Lymphocyte % 9.2 % (19-41); Mean Corp Hgb Conc 31.4 g/gl (32-36); Mean Corpuscular Hgb 27.5 pg (27.0-32.0); Mean Corpuscular Volume 87.4 fL (80-94); Mean Platelet Vol. 10.1 fl (6.2-12.0); Monocyte# 0.93 X10^3/uL; Monocyte% 7.5 % (0-10); Neutrophil # 9.72 X10^3/uL (2.7-7.7); Neutrophil % 78.1 % (47-70); Platelet Count 446 K/mm3 (150-450); RBC Distribution Width CV 14.4 % (11.6-14.6); Red Blood Count 3.82 M/mm3 (4.6-6.2); White Blood Count 12.4 K/mm3 (4.4-11.0)
[2018-04-13 08:15] LABS: POSITIVE COUNT NO; POSITIVE DIFFERENTIAL NO; POSITIVE MORPHOLOGY NO
--- NOTE | 2018-04-13 08:15 | PCM.PN.SRG ---
Subjective: more flatus and 2 bowel movements - Physical Exam General: Alert, Oriented x3, Cooperative Lungs: Diminished - bases Cardiovascular: Regular rate, Regular Rhythm Abdomen: Bowel Sounds Present, Soft, Non Tender, Hypoactive Bowel Sounds Vital Signs Temp Pulse Resp BP Pulse Ox 98.8 F 74 18 109/65 94 04/13/18 05:33 04/13/18 05:33 04/13/18 05:33 04/13/18 05:33 04/13/18 07:24 Oxygen Flow Rate (L/min) 2 Oxygen Delivery Method Nasal Cannula Weight: 74.979 kg Body Mass Index (BMI) 26.6 Intake and Output for Last 24 Hours 04/11/18 04/12/18 04/13/18 23:59 23:59 23:59 Intake Total 1467 / 1467 1357 / 1357 675 / 675 Output Total 900 / 900 1025 / 1025 Balance 567 / 567 332 / 332 675 / 675 Laboratory Tests Past 24 Hrs 04/10/18 04/13/18 04/13/18 06:32 07:00 07:00 WBC Pending RBC Pending Hgb Pending Hct Pending MCV Pending MCH Pending MCHC Pending RDW Pending RDW Differential Pending Plt Count Pending Neut % (Auto) Pending Absolute Neuts (auto) Pending Total Counted Pending Diff Path Review Reviewed Sodium Pending Potassium Pending Chloride Pending Carbon Dioxide Pending Anion Gap Pending BUN Pending Creatinine Pending Est GFR (MDRD) Af Amer Pending Est GFR (MDRD) Non-Af Pending BUN/Creatinine Ratio Pending Glucose Pending Calcium Pending Total Bilirubin Pending AST Pending ALT Pending Alkaline Phosphatase Pending Total Protein Pending Albumin Pending Medical Necessity - Tobacco Use Smoking Status: Current every day smoker Tobacco Use: Chew Assessment/Plan POD # 5 s/p laparoscopic converted to open low anterior resection/sigmoidectomy with splenic flexure mobilization and appendectomy for large fungating sigmoid mass laboratory studies demonstrate a slight decrease in hemoglobin, consistent with the expected blood loss from this complicated surgery. Patient's white blood cell count elevated. WBC count pending NG tube removed, patient vomited last night 2 days previously Xray demonstrated a mild ileus pattern and a small abmount of free air. afebrile but WBC count increasing - CT scan with oral contrast yesterday did not demonstrate a leak or abscess. patient with more flatus and liquid stools. will restart clears. change to oral pain medications. urine clearing- appropriate I&O's Will encourage out of bed in chair and ambulation and use of incentive spirometry. We'll maintain SCDs with Lovenox due to risk of DVT
[2018-04-13 08:27] LABS: ALB/GLOB Ratio 0.4 RATIO (0.9-2.4); AST(SGOT) 74 U/L (15-37); Alanine Aminotransfer ALT/SGPT 49 U/L (16-61); Albumin, Serum 1.8 g/dL (3.2-5.0); Alkaline Phosphatase 133 U/L (45-117); Anion Gap 6 (5-15); BUN 13 mg/dL (7-18); BUN/Creat Ratio 17.9 RATIO (10-20); Calcium,Total 7.6 mg/dL (8.5-10.1); Chloride 102 mmol/L (98-107); Creatinine, Serum 0.73 mg/dL (0.70-1.30); EST Glomerular Filtration Rate 113 mL/min (>60); Est Glom Filt Rate - Afr Amer 136 mL/min (>60); Estimated Creatinine Clearance 60.26 ml/min; Globulin 4.2 g/dL (2.2-4.2); Glucose 145 mg/dL (74-106); Potassium 3.9 mmol/L (3.5-5.1); Sodium Level 141 mmol/L (136-145)
[2018-04-13] MEDS: Metoprolol(XL)Succ 50 MG Tablet PO (09:40)
[2018-04-13] MEDS: Lisinopril 20 MG Tablet PO (09:40)
[2018-04-13] MEDS: Enoxaparin 40 MG/0.4 ML Syringe SC (09:42)
[2018-04-13] MEDS: Ibuprofen 400 MG Tablet PO ×2 (10:53→18:26)
[2018-04-13] MEDS: Ondansetron 4 MG/2 ML Vial IV (17:38)
[2018-04-13] MEDS: 0.9% NaCl Peripheral Flush Adult/Peds IV (17:38)
[2018-04-13] MEDS: proCHLORPERazine 10 MG/2 ML Vial 5 MG IV (23:51)
[2018-04-14 02:03] VITALS: BP 119/76; PULSE 64; RESP 18; TEMP 36.6; O2SAT 92
[2018-04-14] MEDS: Ibuprofen 400 MG Tablet PO ×2 (02:12→08:48)
--- NOTE | 2018-04-14 06:47 | PCM.PN.SRG ---
Subjective: tolerating orals, multiple bowel movements - Physical Exam General: Alert, Oriented x3, Cooperative Lungs: Clear to auscultation, Normal air movement Cardiovascular: Regular rate, No murmurs Abdomen: Bowel Sounds Present, Soft, Non Tender Vital Signs Temp Pulse Resp BP Pulse Ox 98 F 64 18 119/76 92 04/14/18 02:03 04/14/18 02:03 04/14/18 02:03 04/14/18 02:03 04/14/18 02:03 Oxygen Flow Rate (L/min) 2 Oxygen Delivery Method Room Air Weight: 74.979 kg Body Mass Index (BMI) 26.6 Intake and Output for Last 24 Hours 04/12/18 04/13/18 04/14/18 23:59 23:59 23:59 Intake Total 1357 / 1357 1884 / 1884 385 / 385 Output Total 1025 / 1025 600 / 600 Balance 332 / 332 1284 / 1284 385 / 385 Laboratory Tests Past 24 Hrs 04/13/18 04/13/18 07:00 07:00 WBC 12.4 H RBC 3.82 L Hgb 10.5 L Hct 33.4 L MCV 87.4 MCH 27.5 MCHC 31.4 L RDW 14.4 RDW Differential 44.0 H Plt Count 446 MPV 10.1 Immature Gran % (Auto) 0.900 Neut % (Auto) 78.1 H Lymph % (Auto) 9.2 L [place] % (Auto) 7.5 Eos % (Auto) 4.1 Baso % (Auto) 0.2 Absolute Neuts (auto) 9.7 H Absolute Lymphs (auto) 1.14 Total Counted Not Reportable Sodium 141 Potassium 3.9 Chloride 102 Carbon Dioxide 33.0 H Anion Gap 6 BUN 13 Creatinine 0.73 Estim Creat Clear Calc 60.26 Est GFR (MDRD) Af Amer 136 Est GFR (MDRD) Non-Af 113 BUN/Creatinine Ratio 17.9 Glucose 145 H Calcium 7.6 L Total Bilirubin 0.60 AST 74 H ALT 49 Alkaline Phosphatase 133 H Total Protein 6.0 L Albumin 1.8 L Globulin 4.2 Albumin/Globulin Ratio 0.4 L Medical Necessity - Tobacco Use Smoking Status: Current every day smoker Tobacco Use: Chew Assessment/Plan POD # 6 s/p laparoscopic converted to open low anterior resection/sigmoidectomy with splenic flexure mobilization and appendectomy for large fungating sigmoid mass laboratory studies demonstrate a slight decrease in hemoglobin, consistent with the expected blood loss from this complicated surgery. Patient's white blood cell count elevated. WBC count normalized NG tube removed, patient vomited last night 2 days previously Xray demonstrated a mild ileus pattern and a small abmount of free air. afebrile but WBC count increasing - CT scan with oral contrast yesterday did not demonstrate a leak or abscess. patient with more flatus and liquid stools. will restart clears. change to oral pain medications. urine clearing- appropriate I&O's Will encourage out of bed in chair and ambulation and use of incentive spirometry. We'll maintain SCDs with Lovenox due to risk of DVT Will discharge to home
--- NOTE | 2018-04-14 06:49 | DCINST_ITS ---
Discharge Diet: Light diet - advance as tolerated - If you have questions about your diet instructions, please talk to your doctor. Discharge Activity: May Not Drive - for 1 week or while taking narcotic pain meds. May shower in (days): 1 Lifting Restrictions: 10 pounds Call your doctor if your incision/area has: Continuous Slow Oozing, Sudden Increased Bleeding, Increased Pain/ Swelling, Increased Redness, Foul Smelling Discharge Call your doctor if you observe: Fever of 101 or Higher Suture Line Care: Avoid Pulling/Pushing, Avoid Pinching/Bending Additional Dressing/Incision Instructions:: Change or remove dressing in 4 days. Leave steri-strips in place for 1 week. Allergies/Adverse Reactions: Allergies Penicillins Allergy (Verified 04/04/18 14:16) Shortness of breath Medications to take at Discharge Lisinopril [Zestril] 20 mg PO DAILY 03/12/14 Metoprolol(XL)Succ [Toprol Xl (Beta Priscilla)] 50 mg PO DAILY 03/12/14 Ibuprofen [Motrin] 400 mg PO Q4H PRN PRN tablet 04/14/18 Lisinopril [Zestril] 20 mg PO DAILY tablet 04/14/18 Metoprolol(XL)Succ [Toprol Xl (Beta Priscilla)] 50 mg PO DAILY tablet 04/14/18 Oxycodone [Oxyir] 5 mg PO Q4H PRN PRN 7 Days #12 tab 04/14/18 The following prescriptions were given: Oxycodone [Oxyir] 5 mg PO Q4H PRN PRN 7 Days #12 tab PRN Reason: Severe Pain (6-10/10) Primary Care Physician: Teo Monsalve MD [Primary Care Provider] - Test Results: Test results from this visit will be discussed in further detail at your follow- up appointment, if applicable. Please Follow Up With: Wilmer Tirado MD - [phone] When: Call to make an appointment to be seen .
--- NOTE | 2018-04-14 06:51 | DS.PCM_ITS ---
Discharge Date and Diagnosis Date of Admission: 04/08/18 Date of Discharge: 04/14/18 - Primary Discharge Diagnosis colon cancer Hospital Course and Treatment Operations: colectomy Summary of Care Provided: The patient is a 73 year old M an obstructing large sigmoid colon cancer. P The patient underwemt a laparoscopic converted to open low anterior resection/ sigmoidectomy with splenic flexure mobilization and appendectomy for large fungating sigmoid mass laboratory studies demonstrate a slight decrease in hemoglobin, consistent with the expected blood loss from this complicated surgery. Patient's white blood cell count elevated. WBC count normalized NG tube removed, patient vomited last night POD 3 Xray demonstrated a mild ileus pattern and a small abmount of free air. afebrile but WBC count increasing - CT scan with oral contrast yesterday did not demonstrate a leak or abscess. patient with more flatus and liquid stools. Restarted clears. change to oral pain medications. urine clearing- appropriate I&O's Will encourage out of bed in chair and ambulation and use of incentive spirometry. We'll maintain SCDs with Lovenox due to risk of DVT Will discharge to home on POD # 6 Discharge Diet: Light diet - advance as tolerated - If you have questions about your diet instructions, please talk to your doctor. Discharge Activity: May Not Drive - for 1 week or while taking narcotic pain meds. May shower in (days): 1 Call your doctor if your incision/area has: Continuous Slow Oozing, Sudden Increased Bleeding, Increased Pain/ Swelling, Increased Redness, Foul Smelling Discharge Call your doctor if you observe: Fever of 101 or Higher Suture Line Care: Avoid Pulling/Pushing, Avoid Pinching/Bending Additional Dressing/Incision Instructions:: Change or remove dressing in 4 days. Leave steri-strips in place for 1 week. Home Medications: Medications to take at Discharge Lisinopril [Zestril] 20 mg PO DAILY 03/12/14 Metoprolol(XL)Succ [Toprol Xl (Beta Priscilla)] 50 mg PO DAILY 03/12/14 Ibuprofen [Motrin] 400 mg PO Q4H PRN PRN tablet 04/14/18 Lisinopril [Zestril] 20 mg PO DAILY tablet 04/14/18 Metoprolol(XL)Succ [Toprol Xl (Beta Priscilla)] 50 mg PO DAILY tablet 04/14/18 Oxycodone [Oxyir] 5 mg PO Q4H PRN PRN 7 Days #12 tab 04/14/18 Following Prescrptions Were Given to Patient: Oxycodone [Oxyir] 5 mg PO Q4H PRN PRN 7 Days #12 tab PRN Reason: Severe Pain (-07/10) Primary Care Physician: Teo Monsalve MD [Primary Care Provider] - Please Follow Up With: Wilmer Tirado MD - [phone] When: Call to make an appointment to be seen . Medical Necessity - Tobacco Use Smoking Status: Current every day smoker Tobacco Use: Chew Meaningful Use Info Meaningful Use Diagnoses (Choose all that apply): None applicable
[2018-04-14 07:35] VITALS: O2SAT 90
[2018-04-14 08:41] VITALS: BP 126/68; PULSE 73; RESP 18; TEMP 36.8; O2SAT 95
== END 2018-04-14 08:54 | disposition home or self-care (01) | DRG 329 ==
LOC: ACINP 05:15 → MS2 09:36 → MS3 04-12 18:51
PROVIDERS: Urology; Admitting Provider Surgery; Family Provider Family Medicine; PCP Family Medicine; Visit Provider Surgery
PROC: 0DTN0ZZ Resection of Sigmoid Colon, Open Approach (ICD-10-PCS; CPT 44204; principal; 2018-04-08 07:05)
PROC: 0T788DZ Dilation of Bilateral Ureters with Intraluminal Device, Via Natural or Artificial Opening Endoscopic (ICD-10-PCS; 2018-04-08 07:05)
DX: C18.7 Malignant neoplasm of sigmoid colon (principal); E43 Unspecified severe protein-calorie malnutrition; R71.0 Precipitous drop in hematocrit; K56.7 Ileus, unspecified; Z53.31 Laparoscopic surgical procedure converted to open procedure; Z72.0 Tobacco use; Z68.26 Body mass index [BMI] 26.0-26.9, adult
CPT/HCPCS: 36415; 74019; 74176; 80053; 85025; 85027; 86850; 86900; 88302; 88304; 88305; 88309; 88331; 88341; 88342; 93005; 94762; 97802; J7120; A4216; C1769; J1170; J2405

== ENCOUNTER 2018-04-15 08:48 | Emergency (ER) | payer MEDICARE, SELFPAY ==
[2018-04-15 08:53] VITALS: BP 143/79; PULSE 93; RESP 18; TEMP 37; O2SAT 93; BMI 25.8
--- NOTE | 2018-04-15 09:00 | CT_ITS ---
STUDY: CT ABDOMEN AND PELVIS WITH CONTRAST REASON FOR EXAM: Male, 73 years old. History of a prior sigmoid resection. Drainage from surgical site. RADIATION DOSAGE (If Supplied By Facility): CTDIvol = ( 14.68 ) mGy, DLP = ( 983.56 ) mGycm TECHNIQUE: Transaxial images were obtained from the dome of the diaphragm to the symphysis pubis without oral contrast. 100 ml of Isovue 300 contrast was administered. Sagittal and coronal images were reconstructed. Individualized dose optimization techniques were used for this CT. COMPARISON: Comparison is made with prior examination dated April 12, 2018. FINDINGS: Small bilateral pleural effusions with underlying infiltration and/or atelectasis. Coronary artery calcification. There is decreased attenuation of the liver consistent with steatosis. Small amount of residual perihepatic and perisplenic fluid although this has improved as compared to prior study. There are surgical clips in the gallbladder fossa consistent with a prior cholecystectomy. Normal spleen. Normal pancreas. Normal bilateral adrenal glands. Normal right kidney. There is a 2.6 cm cyst in the upper anterior portion of the left kidney. There is a small hiatal hernia. Normal small intestine. History of prior sigmoid resection and anastomosis. There is evidence of a scattered sigmoid diverticula. There is circumferential wall thickening of the descending colon distal to the splenic flexure with increased markings in the surrounding peritoneal fat. Colitis should be ruled out. There are surgical clips in the region of the appendix consistent with a prior appendectomy. Normal abdominal aorta. Normal inferior vena cava. Normal retroperitoneum. Increased markings in the perinephric spaces bilaterally as well as increased markings in the mesenteric fat. This may be related to the postoperative findings. Air is seen within the anterior aspect of the urinary bladder most likely secondary to prior Jones catheter placement. There is a right-sided inguinal hernia containing adipose tissue. There are diffuse degenerative changes of the visualized lumbar spine. CT/Abdomen/Pelvis W IV Cont ONLY IMPRESSION: Interval decrease in the perihepatic and perisplenic fluid. Findings suggestive of colitis of the descending colon distal to the splenic flexure. Left renal cyst. Electronically Signed: Soren Tabares MD at 10:03 EDT Tel [phone], Service support ,
--- NOTE | 2018-04-15 09:09 | ED.VISSUMM ---
- ER Visit Summary Date of Service: 04/15/18 Chief Complaint: Wound check History of Present Illness: The patient is a 73 M who had sigmoid resection colectomy on April 08 secondary to colon cancer. He was discharged home yesterday. Patient noted pink tinged watery drainage from the surgical site today. He denies significant pain and overall states he feels well. Surgery was performed by Dr. Reyes. Physical Examination: Vital signs are unremarkable. Patient sitting upright in bed no acute distress. Head neck examination is unremarkable. Heart is regular rate and rhythm. Lung sounds are clear. Abdomen is soft with appropriate postop tenderness. No guarding or rebound. He has a midline incision with carlos intact. There is pink serosanguineous drainage from the midportion of the wound. I do not feel any local fluid collections or abscesses. Test Results: CBC was a white count of 15.3 with 79% neutrophils. The last 3 white blood cell counts from the hospital were 14.1, 18.3, and 12.4. Chemistry studies are significant for glucose of 169. LFTs show an alk phos of 120 and AST of 39. CT scan abdomen and pelvis with IV contrast reveals a decrease in the perihepatic and perisplenic fluid. There is circumferential wall thickening of the descending colon to the splenic flexure. Emergency Department Course and Treatment: Patient was discussed with Dr. Reyes who had already reviewed his CT scan. He asked that I take out a few extra carlos and packed the wound. Dr. Reyes will see him in the office at 115 tomorrow. Treatment Plan: [] Disposition: Discharge Impression: Postop wound drainage This note was generated with [employer] dictation software. It may contain incorrect words, spelling, and punctuation that were not noted in review of the chart prior to signing ED Disposition - Plan for ED Patient: Chief Complaint: Wound Check Referrals: Teo Monsalve MD [Primary Care Provider] -
[2018-04-15 09:19] LABS: Absolute Lymphocyte Count 1.14 X10^3/ul (0.83-4.51); Absolute Neutrophil Count 12.2 X10^3/uL (2.0-7.7); Basophil# 0.05 X10^3/uL; Basophil% 0.3 % (0-1); Eosinophil# 0.79 X10^3/uL; Eosinophils% 5.2 % (0-5); Hematocrit 33.2 % (40-54); Hemoglobin 10.5 g/dl (13.0-16.5); Lymphocyte # 1.14 X10^3/ul (4.0); Lymphocyte % 7.4 % (19-41); Mean Corp Hgb Conc 31.6 g/gl (32-36); Mean Corpuscular Hgb 27.1 pg (27.0-32.0); Mean Corpuscular Volume 85.8 fL (80-94); Mean Platelet Vol. 9.8 fl (6.2-12.0); Monocyte# 0.99 X10^3/uL; Monocyte% 6.5 % (0-10); Neutrophil # 12.17 X10^3/uL (2.7-7.7); Neutrophil % 79.4 % (47-70); Platelet Count 360 K/mm3 (150-450); RBC Distribution Width CV 14.9 % (11.6-14.6); RBC Distribution Width SD 46.1 fl (35.1-43.9); Red Blood Count 3.87 M/mm3 (4.6-6.2); White Blood Count 15.3 K/mm3 (4.4-11.0)
[2018-04-15 09:22] LABS: POSITIVE COUNT NO; POSITIVE DIFFERENTIAL NO; POSITIVE MORPHOLOGY NO
[2018-04-15 09:32] LABS: AST(SGOT) 39 U/L (15-37); Alanine Aminotransfer ALT/SGPT 36 U/L (16-61); Albumin, Serum 1.9 g/dL (3.2-5.0); Alkaline Phosphatase 120 U/L (45-117); Anion Gap 5 (5-15); BUN 10 mg/dL (7-18); BUN/Creat Ratio 13.5 RATIO (10-20); Bilirubin, Direct 0.18 mg/dL (0.00-0.30); Calcium,Total 7.9 mg/dL (8.5-10.1); Chloride 102 mmol/L (98-107); Creatinine, Serum 0.74 mg/dL (0.70-1.30); EST Glomerular Filtration Rate 110 mL/min (>60); Est Glom Filt Rate - Afr Amer 134 mL/min (>60); Estimated Creatinine Clearance 60.26 ml/min; Globulin 4.3 g/dL (2.2-4.2); Glucose 169 mg/dL (74-106); Protein, Total 6.2 g/dL (6.4-8.2); Sodium Level 139 mmol/L (136-145)
--- NOTE | 2018-04-15 10:45 | ED.DEP ---
ED Disposition - Plan for ED Patient: Disposition: Home or Assisted Living Chief Complaint: Wound Check Instructions: ED Wound Check Post Op No Infec Referrals: Wilmer Tirado MD [STAFF PHYSICIAN] - 04/16/18 1:15 pm
== END 2018-04-15 11:02 | disposition home or self-care (01) ==
PROVIDERS: Emergency Provider Emergency Medicine; Family Provider Family Medicine; PCP Family Medicine
DX: T81.89XA Other complications of procedures, not elsewhere classified, initial encounter (principal); Z85.038 Personal history of other malignant neoplasm of large intestine; I10 Essential (primary) hypertension; Z79.899 Other long term (current) drug therapy; Z87.891 Personal history of nicotine dependence
CPT/HCPCS: 74177; 80048; 80076; 85025; 99285; Q9967

== ENCOUNTER 2018-04-17 15:01 | Inpatient (IN) | payer MEDICARE, SELFPAY ==
[2018-04-17] VITALS (18 sets, daily range): BP systolic 110–135; BP diastolic 70–83; PULSE 73–86; RESP 14–18; TEMP 36.1–37.4; O2SAT 90–99; BMI 24.7; BMI 24.5
--- NOTE | 2018-04-17 | MISC_PTH ---
PATIENT: FREDO EMANUEL LOC: MS3 U#:[id number] AGE/SX: 73/M ROOM: [facility] RE04/17/[address]: Dr. Wilmer Tirado MD : [id number] BED: 1 DIS: 04/25/2018 SPEC #: [id number] RECD: 04/17/18 16:17 STATUS: LORRAINE REQ #: [id number] ROSETTA: 04/17/18 00:[address]: Wilmer Tirado DEPT: SURGICAL PATHOLOGY RECD BY: Wilmer Maurer ENTERED: 04/18/18 06:11 SP TYPE: MISC OTHR DR: Dr. Teo Monsalve MD Tissues: Adipose tissue Procedures: Surgery Specimen Level III HEADER OPERATION: Exploratory laparotomy, intra-abdominal irrigation PRE-OP DIAGNOSIS: Wound dehiscence postcolectomy TISSUE SUBMITTED: Wound fat MICROSCOPIC DIAGNOSIS Wound fat: Pieces of adipose tissue with acute and chronic inflammation, congestion, hemorrhage and reactive changes. 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 MICROSCOPIC DESCRIPTION Slides are reviewed. GROSS DESCRIPTION Received in fixative is one container labeled with the patient's name and designated wound fat. The specimen consists of two pieces of congested soft tissue that in aggregate measure 2.5 x 3 x 0.5 cm. Director Of Event Marketing sections are submitted in one cassette. / JUAN:megan 04/18/18 TC:5 CPT: 79912
[2018-04-17] MEDS: levoFLOXacin IV 500 MG/100 ML BAG 100 MG IV (12:54)
--- NOTE | 2018-04-17 13:40 | CASEMGMT ---
JUANJO LOZADA Face to Face with patient for initial transition planning/care coordination assessment. RN CM introduced self and role at [facility]. Patient sitting on edge of bed, alert and oriented, at bedside. Patient states that he want to discharge and that JUMA David said that HHC is setup. RN CM updated patient that HHC would need to be setup, stated that HHC is needed to assist with putting patient's dorian hose on daily. RN KIERRA explained to patient and that HHC would not be coming daily to put on dorian hose and that patient would need to be home bound. Patient irritated and stated that he would follow-up and complete outpatient therapy and would have neighbor assist with dorian hose. JUANJO LOZADA offered to setup outpatient therapy at [facility], patient's preferred facility for outpatient therapy. Patient stated that he would call and setup his own therapy for when he wanted it. RN CM encouraged patient to call later today and setup outpatient therapy for Sunday 04/22. Patient requested that RN CM update nurse to assist with discharge instruction and his trouble with constipation. CM to follow for discharge planning needs that may arise. Disposition Plan: Patient to discharge home with outpatient therapy, family support, and follow-up plans in place.
--- NOTE | 2018-04-17 15:01 | OP.PCM_ITS ---
Report of Operation Date of Procedure: 04/17/18 Pre-Operative Diagnosis: likely fascial dehissence Post-Operative Diagnosis: fascial dehissence, upper abdomen - fascial tear, not suture breakage, serous intraabdominal fluid, no signs of anastomotic leak Surgery/Procedure Performed:: exploratory laparotomy, irrigation, closure of fascial dehissence informatics coordinator: None Type of Anesthesia:: General Anesthesiologist: Klever Armando - [id number] Specimen's removed: culture, wound, peritoneal/incisional fat. Drains: mary Estimated Blood Loss (mL): 25 Fluids Replaced: 1000 Description of Procedure: The patient was brought to the operating suite. Sign in was performed verifying patient, site, procedure, position, and DVT prophylaxis with SCDs. Patient received 500 mg Levaquin antibiotic for presumed fascial dehiscence with open skin Following induction of general anesthetic, the patient?s abdomen was prepped and draped in the usual fashion with chlorhexidine scrub. Timeout was performed verifying patient, site, position. all carlos were removed. The upper abdominal incision was finger dissected open, revealing omentum present with the fascial dehiscence. The fascial dehiscence demonstrated pulling through the fascia with an intact suture, running from the superior fixation point with the fascia dehisced down to the level the umbilicus. The entire running suture then was removed. Intra- abdominal cavity demonstrated some scant clear to slightly turbid fluid. There were no signs of succus or bile staining. Culture swab for aerobic and anaerobic cultures were obtained. Retractors were placed to visualize the pelvis as best possible without performing extensive removal of the bowel. There were no signs of leakage or abscess in the pelvis. At this time, the abdominal cavity is irrigated with approximately 1 L of fluid. A 15 round Tariq-Rogers drain was placed in the right lower quadrant, secured with a 3-0 nylon suture. Fascia was closed with multiple [id number] interrupted 0 Prolene sutures. subcutaneous skin was irrigated with saline. Skin was loosely reapproximated with 3-0 nylon sutures. Damp saline soaked gauze was packed along the wound. A dressing was placed. An abdominal binder was placed. The patient was brought to recovery room in stable condition.
[2018-04-17] MEDS: HYDROmorphone PCA 0.2 MG/ML 100 ML BAG 20 MG IV (17:52)
[2018-04-17] MEDS: Lactated Ringers 1,000 ML 100 ML IV (18:45)
[2018-04-18] VITALS (20 sets, daily range): BP systolic 95–137; BP diastolic 56–79; PULSE 77–86; RESP 16–18; TEMP 36.5–37.2; O2SAT 92–98
[2018-04-18] MEDS: Lactated Ringers 1,000 ML 100 ML IV ×2 (04:04→16:33)
[2018-04-18 07:18] LABS: Absolute Neutrophil Count 12.2 X10^3/uL (2.0-7.7); Basophil# 0.04 X10^3/uL; Basophil% 0.2 % (0-1); Eosinophil# 0.73 X10^3/uL; Eosinophils% 4.5 % (0-5); Hemoglobin 10.5 g/dl (13.0-16.5); Lymphocyte % 10.5 % (19-41); Mean Corp Hgb Conc 30.9 g/gl (32-36); Mean Corpuscular Hgb 26.9 pg (27.0-32.0); Mean Platelet Vol. 10.1 fl (6.2-12.0); Monocyte# 1.32 X10^3/uL; Monocyte% 8.2 % (0-10); Neutrophil # 12.19 X10^3/uL (2.7-7.7); Neutrophil % 75.7 % (47-70); Platelet Count 480 K/mm3 (150-450); RBC Distribution Width CV 15.5 % (11.6-14.6); RBC Distribution Width SD 48.7 fl (35.1-43.9); Red Blood Count 3.91 M/mm3 (4.6-6.2); White Blood Count 16.1 K/mm3 (4.4-11.0)
[2018-04-18 07:21] LABS: POSITIVE COUNT NO; POSITIVE DIFFERENTIAL NO; POSITIVE MORPHOLOGY NO
[2018-04-18 07:24] LABS: ALB/GLOB Ratio 0.4 RATIO (0.9-2.4); AST(SGOT) 35 U/L (15-37); Alanine Aminotransfer ALT/SGPT 31 U/L (16-61); Albumin, Serum 1.8 g/dL (3.2-5.0); Alkaline Phosphatase 127 U/L (45-117); Anion Gap 5 (5-15); BUN 9 mg/dL (7-18); BUN/Creat Ratio 12.6 RATIO (10-20); Calcium,Total 7.9 mg/dL (8.5-10.1); Chloride 102 mmol/L (98-107); Creatinine, Serum 0.72 mg/dL (0.70-1.30); EST Glomerular Filtration Rate 115 mL/min (>60); Est Glom Filt Rate - Afr Amer 139 mL/min (>60); Estimated Creatinine Clearance 60.26 ml/min; Globulin 4.2 g/dL (2.2-4.2); Glucose 123 mg/dL (74-106); Potassium 4.4 mmol/L (3.5-5.1); Sodium Level 140 mmol/L (136-145)
--- NOTE | 2018-04-18 07:24 | NURSING ---
point of sale associate called, aware of order for PICC line. Will place PICC when she is in the building for another patient.
[2018-04-18] MEDS: levoFLOXacin IV 750 MG/150 ML BAG 100 MG IV (09:04)
[2018-04-18] MEDS: Enoxaparin 40 MG/0.4 ML Syringe SC (09:05)
[2018-04-18] MEDS: Lisinopril 20 MG Tablet PO (09:05)
[2018-04-18] MEDS: Metoprolol(XL)Succ 50 MG Tablet PO (09:05)
[2018-04-18] MEDS: 0.9% NaCl Peripheral Flush Adult/Peds IV (11:17)
--- NOTE | 2018-04-18 12:14 | PCM.PN.SRG ---
Subjective: some incisional pain, no flatus - Physical Exam General: Alert, Oriented x3 Lungs: Clear to auscultation, Normal air movement, Diminished - at basis Cardiovascular: Regular rate, Regular Rhythm Abdomen: Soft, Non Tender, Hypoactive Bowel Sounds, Distended, - - incision open with moist to dry packing removed, some granulation tissue, no signs of recurrent dehiscence/evisceration Vital Signs Temp Pulse Resp BP Pulse Ox 98.9 F 84 16 95/57 L 94 04/18/18 11:09 04/18/18 11:09 04/18/18 11:09 04/18/18 11:09 04/18/18 11:09 Oxygen Flow Rate (L/min) 94 Oxygen Delivery Method Nasal Cannula Weight: 69.4 kg Body Mass Index (BMI) 24.5 Intake and Output for Last 24 Hours 04/16/18 04/17/18 04/18/18 23:59 23:59 23:59 Intake Total 1800 / 1800 1474 / 1474 Output Total 340 / 340 1290 / 1290 Balance 1460 / 1460 184 / 184 Microbiology Past 72 Hours 04/17/18 14:10 Wound Culture - Preliminary Tissue - Abdominal GNR lactose patient representative Laboratory Tests Past 24 Hrs 04/18/18 04/18/18 06:45 06:45 WBC 16.1 H RBC 3.91 L Hgb 10.5 L Hct 34.0 L MCV 87.0 MCH 26.9 L MCHC 30.9 L RDW 15.5 H RDW Differential 48.7 H Plt Count 480 H MPV 10.1 Immature Gran % (Auto) 0.900 Neut % (Auto) 75.7 H Lymph % (Auto) 10.5 L [place] % (Auto) 8.2 Eos % (Auto) 4.5 Baso % (Auto) 0.2 Absolute Neuts (auto) 12.2 H Absolute Lymphs (auto) 1.70 Total Counted Not Reportable Sodium 140 Potassium 4.4 Chloride 102 Carbon Dioxide 33.0 H Anion Gap 5 BUN 9 Creatinine 0.72 Estim Creat Clear Calc 60.26 Est GFR (MDRD) Af Amer 139 Est GFR (MDRD) Non-Af 115 BUN/Creatinine Ratio 12.6 Glucose 123 H Calcium 7.9 L Total Bilirubin 0.30 AST 35 ALT 31 Alkaline Phosphatase 127 H Total Protein 6.0 L Albumin 1.8 L Globulin 4.2 Albumin/Globulin Ratio 0.4 L Medical Necessity - Tobacco Use Smoking Status: Never smoker Assessment/Plan postoperatively #10/10. Status post exploratory laparotomy, reclosure of fascial dehiscence, status post open sigmoid resection with splenic flexure mobilization for large bulky tumor. pathology returned as a 4 cm tumor with 6 out of 31 lymph nodes positive, the largest being a 1.2 cm metastatic nodule. All margins were felt to be appropriate with the closest radial margin 1.5 cm. There was significant. Colonic and peritumoral inflammation along with what was felt to be diverticulitis explaining how the actual pelvic mass was much larger than the tumor size fortunately. 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 fascial dehiscence-patient had significant fluid output on Sunday from the inferior aspect of the incision which was felt to be a subcutaneous infection. With reevaluation of the last 2 days. This was then felt to be truly a dehiscence. He was taken to the OR yesterday, had exploration. Inspection into the pelvis did not completely demonstrate the anastomosis but noted no bile staining or collections worrisome for an anastomotic leak. CT scan obtained on Sunday and the straight no signs of a leak. Patient's fascia was closed with interrupted 0 Prolene [id number] sutures and wound, left back area. Wound appears to be granulating this morning with no further complications noted. We'll continue twice a day packing. malnutrition-patient had lost 40 pounds prior to surgery. He had just started retaking orals on Sunday. After talking to his , she notes that he really had poor oral intake, Sunday, Sunday and Sunday. given the history of malnutrition and now postoperative lack of adequate oral nutrition, we will place PICC line and start TPN, even given the risks. We will start standard central mixture, 20% Intralipid. We will check Accu-Cheks [id number]. We'll repeat laboratory studies in the morning. Will obtain prealbumin level to assess baseline for comparison later on in week area. History of tobacco use.-Patient was using chewing tobacco. Prior to surgery last week. We'll have his encourage patient not to use chewing tobacco or nicotine products throughout this competent healing process. VTE prophylaxis-SCDs and Lovenox, given history of malignancy leukocytosis-postoperatively only obvious abnormality was bilateral atelectasis. Patient with fever over the weekend and mildly elevated white count. We will follow white blood cell count, no signs of anastomotic leak at surgery, no urinary complaints. We will encourage incentive spirometry use. We'll encourage sitting up in a chair and ambulation. Given the fact that the patient had the colon (Timentin for greater than 24 hours. Will maintain patient on Levaquin.
--- NOTE | 2018-04-18 12:21 | PN.SURG_ITS ---
Subjective: some incisional pain, no flatus - Physical Exam General: Alert, Oriented x3 Lungs: Clear to auscultation, Normal air movement, Diminished - at basis Cardiovascular: Regular rate, Regular Rhythm Abdomen: Soft, Non Tender, Hypoactive Bowel Sounds, Distended, - - incision open with moist to dry packing removed, some granulation tissue, no signs of recurrent dehiscence/evisceration Vital Signs Temp Pulse Resp BP Pulse Ox 98.9 F 84 16 95/57 L 94 04/18/18 11:09 04/18/18 11:09 04/18/18 11:09 04/18/18 11:09 04/18/18 11:09 Oxygen Flow Rate (L/min) 94 Oxygen Delivery Method Nasal Cannula Weight: 69.4 kg Body Mass Index (BMI) 24.5 Intake and Output for Last 24 Hours 04/16/18 04/17/18 04/18/18 23:59 23:59 23:59 Intake Total 1800 / 1800 1474 / 1474 Output Total 340 / 340 1290 / 1290 Balance 1460 / 1460 184 / 184 Microbiology Past 72 Hours 04/17/18 14:10 Wound Culture - Preliminary Tissue - Abdominal 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 Laboratory Tests Past 24 Hrs 04/18/18 04/18/18 06:45 06:45 WBC 16.1 H RBC 3.91 L Hgb 10.5 L Hct 34.0 L MCV 87.0 MCH 26.9 L MCHC 30.9 L RDW 15.5 H RDW Differential 48.7 H Plt Count 480 H MPV 10.1 Immature Gran % (Auto) 0.900 Neut % (Auto) 75.7 H Lymph % (Auto) 10.5 L [place] % (Auto) 8.2 Eos % (Auto) 4.5 Baso % (Auto) 0.2 Absolute Neuts (auto) 12.2 H Absolute Lymphs (auto) 1.70 Total Counted Not Reportable Sodium 140 Potassium 4.4 Chloride 102 Carbon Dioxide 33.0 H Anion Gap 5 BUN 9 Creatinine 0.72 Estim Creat Clear Calc 60.26 Est GFR (MDRD) Af Amer 139 Est GFR (MDRD) Non-Af 115 BUN/Creatinine Ratio 12.6 Glucose 123 H Calcium 7.9 L Total Bilirubin 0.30 AST 35 ALT 31 Alkaline Phosphatase 127 H Total Protein 6.0 L Albumin 1.8 L Globulin 4.2 Albumin/Globulin Ratio 0.4 L Medical Necessity - Tobacco Use Smoking Status: Never smoker Assessment/Plan postoperatively #10/10. Status post exploratory laparotomy, reclosure of fascial dehiscence, status post open sigmoid resection with splenic flexure mobilization for large bulky tumor. pathology returned as a 4 cm tumor with 6 out of 31 lymph nodes positive, the largest being a 1.2 cm metastatic nodule. All margins were felt to be appropriate with the closest radial margin 1.5 cm. There was significant. Colonic and peritumoral inflammation along with what was felt to be diverticulitis explaining how the actual pelvic mass was much larger than the tumor size fortunately. 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 fascial dehiscence-patient had significant fluid output on Sunday from the inferior aspect of the incision which was felt to be a subcutaneous infection. With reevaluation of the last 2 days. This was then felt to be truly a dehiscence. He was taken to the OR yesterday, had exploration. Inspection into the pelvis did not completely demonstrate the anastomosis but noted no bile staining or collections worrisome for an anastomotic leak. CT scan obtained on Sunday and the straight no signs of a leak. Patient's fascia was closed with interrupted 0 Prolene [id number] sutures and wound, left back area. Wound appears to be granulating this morning with no further complications noted. We'll continue twice a day packing. malnutrition-patient had lost 40 pounds prior to surgery. He had just started retaking orals on Sunday. After talking to his , she notes that he really had poor oral intake, Sunday, Sunday and Sunday. given the history of malnutrition and now postoperative lack of adequate oral nutrition, we will place PICC line and start TPN, even given the risks. We will start standard central mixture, 20% Intralipid. We will check Accu-Cheks [id number]. We 'll repeat laboratory studies in the morning. Will obtain prealbumin level to assess baseline for comparison later on in week area. History of tobacco use.-Patient was using chewing tobacco. Prior to surgery last week. We'll have his encourage patient not to use chewing tobacco or nicotine products throughout this competent healing process. VTE prophylaxis-SCDs and Lovenox, given history of malignancy leukocytosis-postoperatively only obvious abnormality was bilateral atelectasis. Patient with fever over the weekend and mildly elevated white count. We will follow white blood cell count, no signs of anastomotic leak at surgery, no urinary complaints. We will encourage incentive spirometry use. We 'll encourage sitting up in a chair and ambulation. Given the fact that the patient had the colon (Timentin for greater than 24 hours. Will maintain patient on Levaquin.
[2018-04-18 13:10] LABS: Prealbumin 7.4 mg/dL (20.0-40.0)
[2018-04-18] MEDS: Fat Emulsions 20% 250 ML IV (16:36)
[2018-04-18 17:01] LABS: Bedside Glucose 103 mg/dL (70-110)
[2018-04-18] MEDS: HYDROmorphone PCA 0.2 MG/ML 100 ML BAG 20 MG IV (19:06)
[2018-04-19] VITALS (17 sets, daily range): BP systolic 107–124; BP diastolic 63–73; PULSE 64–75; RESP 12–20; TEMP 36.7–37.4; O2SAT 91–98
[2018-04-19 00:35] LABS: Bedside Glucose 200 mg/dL (70-110)
[2018-04-19] MEDS: Lactated Ringers 1,000 ML 100 ML IV ×3 (02:01→21:10)
--- NOTE | 2018-04-19 04:11 | NURSING ---
Notified lab that even though pt has a PICC, he is receiving TPN and it is not advisable to draw labs from his PICC under these circumstances. Therefore, he will be a draw for them.
[2018-04-19 06:27] LABS: Absolute Lymphocyte Count 0.98 X10^3/ul (0.83-4.51); Absolute Neutrophil Count 9.5 X10^3/uL (2.0-7.7); Basophil# 0.04 X10^3/uL; Basophil% 0.3 % (0-1); Eosinophil# 0.66 X10^3/uL; Eosinophils% 5.2 % (0-5); Hematocrit 33.5 % (40-54); Hemoglobin 10.3 g/dl (13.0-16.5); Lymphocyte # 0.98 X10^3/ul (4.0); Lymphocyte % 7.7 % (19-41); Mean Corp Hgb Conc 30.7 g/gl (32-36); Mean Corpuscular Hgb 26.9 pg (27.0-32.0); Mean Corpuscular Volume 87.5 fL (80-94); Mean Platelet Vol. 9.9 fl (6.2-12.0); Monocyte# 1.34 X10^3/uL; Monocyte% 10.6 % (0-10); Neutrophil # 9.54 X10^3/uL (2.7-7.7); Neutrophil % 75.3 % (47-70); Platelet Count 389 K/mm3 (150-450); RBC Distribution Width CV 15.2 % (11.6-14.6); RBC Distribution Width SD 48.8 fl (35.1-43.9); Red Blood Count 3.83 M/mm3 (4.6-6.2); White Blood Count 12.7 K/mm3 (4.4-11.0)
[2018-04-19 06:28] LABS: POSITIVE COUNT NO; POSITIVE DIFFERENTIAL NO; POSITIVE MORPHOLOGY NO
[2018-04-19 06:41] LABS: ALB/GLOB Ratio 0.4 RATIO (0.9-2.4); AST(SGOT) 21 U/L (15-37); Alanine Aminotransfer ALT/SGPT 23 U/L (16-61); Albumin, Serum 1.6 g/dL (3.2-5.0); Alkaline Phosphatase 104 U/L (45-117); Anion Gap 4 (5-15); BUN 11 mg/dL (7-18); BUN/Creat Ratio 16.4 RATIO (10-20); Calcium,Total 7.7 mg/dL (8.5-10.1); Chloride 99 mmol/L (98-107); Creatinine, Serum 0.67 mg/dL (0.70-1.30); EST Glomerular Filtration Rate 124 mL/min (>60); Est Glom Filt Rate - Afr Amer 150 mL/min (>60); Estimated Creatinine Clearance 60.26 ml/min; Globulin 4.2 g/dL (2.2-4.2); Glucose 184 mg/dL (74-106); Magnesium 2.1 mg/dL (1.6-2.6); Potassium 4.2 mmol/L (3.5-5.1); Protein, Total 5.8 g/dL (6.4-8.2); Sodium Level 137 mmol/L (136-145)
--- NOTE | 2018-04-19 06:41 | PN.SURG_ITS ---
Subjective: scant flatus, some nausea - Physical Exam General: Alert, Oriented x3 Lungs: Clear to auscultation, Normal air movement Cardiovascular: Regular rate, Regular Rhythm Abdomen: Bowel Sounds Present, Soft, Hypoactive Bowel Sounds, Tender - at incisions, wound granulating Vital Signs Temp Pulse Resp BP Pulse Ox 98.2 F 71 16 107/67 94 04/19/18 02:00 04/19/18 02:00 04/19/18 02:00 04/19/18 02:00 04/19/18 02:00 Oxygen Flow Rate (L/min) 1 Oxygen Delivery Method Nasal Cannula Weight: 71.8 kg Body Mass Index (BMI) 24.5 Intake and Output for Last 24 Hours 04/17/18 04/18/18 04/19/18 23:59 23:59 23:59 Intake Total 1800 / 1800 3111 / 3111 1509 / 1509 Output Total 340 / 340 2147 / 2147 360 / 360 Balance 1460 / 1460 964 / 964 1149 / 1149 Microbiology Past 72 Hours 04/17/18 14:10 Gram Stain - Final Tissue - Abdominal Wound Culture - 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 Laboratory Tests Past 24 Hrs 04/18/18 04/18/18 04/18/18 06:45 06:45 06:45 WBC 16.1 H RBC 3.91 L Hgb 10.5 L Hct 34.0 L MCV 87.0 MCH 26.9 L MCHC 30.9 L RDW 15.5 H RDW Differential 48.7 H Plt Count 480 H MPV 10.1 Immature Gran % (Auto) 0.900 Neut % (Auto) 75.7 H Lymph % (Auto) 10.5 L [place] % (Auto) 8.2 Eos % (Auto) 4.5 Baso % (Auto) 0.2 Absolute Neuts (auto) 12.2 H Absolute Lymphs (auto) 1.70 Total Counted Not Reportable Sodium 140 Potassium 4.4 Chloride 102 Carbon Dioxide 33.0 H Anion Gap 5 BUN 9 Creatinine 0.72 Estim Creat Clear Calc 60.26 Est GFR (MDRD) Af Amer 139 Est GFR (MDRD) Non-Af 115 BUN/Creatinine Ratio 12.6 Glucose 123 H Calcium 7.9 L Phosphorus Magnesium Total Bilirubin 0.30 AST 35 ALT 31 Alkaline Phosphatase 127 H Total Protein 6.0 L Albumin 1.8 L Globulin 4.2 Albumin/Globulin Ratio 0.4 L Prealbumin 7.4 L 04/19/18 04/19/18 05:30 05:30 WBC 12.7 H RBC 3.83 L Hgb 10.3 L Hct 33.5 L MCV 87.5 MCH 26.9 L MCHC 30.7 L RDW 15.2 H RDW Differential 48.8 H Plt Count 389 MPV 9.9 Immature Gran % (Auto) 0.900 Neut % (Auto) 75.3 H Lymph % (Auto) 7.7 L [place] % (Auto) 10.6 H Eos % (Auto) 5.2 H Baso % (Auto) 0.3 Absolute Neuts (auto) 9.5 H Absolute Lymphs (auto) 0.98 Total Counted Not Reportable Sodium Pending Potassium Pending Chloride Pending Carbon Dioxide Pending Anion Gap Pending BUN Pending Creatinine Pending Estim Creat Clear Calc Est GFR (MDRD) Af Amer Pending Est GFR (MDRD) Non-Af Pending BUN/Creatinine Ratio Pending Glucose Pending Calcium Pending Phosphorus Pending Magnesium Pending Total Bilirubin Pending AST Pending ALT Pending Alkaline Phosphatase Pending Total Protein Pending Albumin Pending Globulin Albumin/Globulin Ratio Prealbumin POC Glucose 04/18/18 04/18/18 23:41 16:32 POC Glucose 200 H 103 Medical Necessity - Tobacco Use Smoking Status: Never smoker Assessment/Plan postoperatively #11/11. Status post exploratory laparotomy, reclosure of fascial dehiscence, status post open sigmoid resection with splenic flexure mobilization for large bulky tumor. pathology returned as a 4 cm tumor with 6 out of 31 lymph nodes positive, the largest being a 1.2 cm metastatic nodule. All margins were felt to be appropriate with the closest radial margin 1.5 cm. There was significant. Colonic and peritumoral inflammation along with what was felt to be diverticulitis explaining how the actual pelvic mass was much larger than the tumor size fortunately. 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 fascial dehiscence-patient had significant fluid output on Sunday from the inferior aspect of the incision which was felt to be a subcutaneous infection. With reevaluation of the last 2 days. This was then felt to be truly a dehiscence. He was taken to the OR yesterday, had exploration. Inspection into the pelvis did not completely demonstrate the anastomosis but noted no bile staining or collections worrisome for an anastomotic leak. CT scan obtained on Sunday and the no signs of a leak. Patient's fascia was closed with interrupted 0 Prolene [id number] sutures and wound, left back area. Wound appears to be granulating this morning with no further complications noted. We'll continue twice a day packing. malnutrition-patient had lost 40 pounds prior to surgery. He had just started retaking orals on Sunday. After talking to his , she notes that he really had poor oral intake, Sunday, Sunday and Sunday. given the history of malnutrition and now postoperative lack of adequate oral nutrition, we will place PICC line and start TPN, even given the risks. We will start standard central mixture, 20% Intralipid. We will check Accu-Cheks [id number]. We 'll repeat laboratory studies in the morning. obtained prealbumin level to assess baseline for comparison later on in week area. History of tobacco use.-Patient was using chewing tobacco. Prior to surgery last week. We'll have his encourage patient not to use chewing tobacco or nicotine products throughout this competent healing process. VTE prophylaxis-SCDs and Lovenox, given history of malignancy leukocytosis-postoperatively only obvious abnormality was bilateral atelectasis. Patient with fever over the weekend and mildly elevated white count. We will follow white blood cell count, no signs of anastomotic leak at surgery, no urinary complaints. We will encourage incentive spirometry use. We 'll encourage sitting up in a chair and ambulation. Given the fact that the patient had the abdomen open for greater than 24 hours, will maintain patient on Levaquin. culture GNR. - ID pending. Will have physical therapy assist in reconditioning. Once return of bowel function, will likely need Rehab for deconditioning
[2018-04-19 07:50] LABS: Bedside Glucose 191 mg/dL (70-110)
[2018-04-19] MEDS: 0.9% NaCl Peripheral Flush Adult/Peds IV ×2 (08:19→13:48)
--- NOTE | 2018-04-19 10:22 | CASEMGMT ---
JUANJO LOZADA Readmission note. 04/08-04/14/18: DC'd after treatment for colectomy, lap converted to open low anterior resection w/splenic flexure mobilization and appendectomy for colon cancer. Discharged home independently. 04/17/18- Pt presented with fascial dehissence, upper abd. To OR for expl lap, irrigation and closure of fascial dehissence. Pt is on TPN for malnutrition, on O2 but does not have Home O2. Intro role of CM to patient in room. He states he was independent @ home, his is able to assist him. Per pt his drives, is able to assist with f/u appointments. Pt has prescription coverage. No needs identified @ this time. Meg PHILLIPSN RN ACM
[2018-04-19 11:41] LABS: Bedside Glucose 187 mg/dL (70-110)
[2018-04-19] MEDS: Metoprolol(XL)Succ 50 MG Tablet PO (11:45)
[2018-04-19] MEDS: Enoxaparin 40 MG/0.4 ML Syringe SC (11:45)
[2018-04-19] MEDS: Insulin Lispro 100 UNIT/ML INSULN.PEN SC ×2 (11:52→18:13)
[2018-04-19] MEDS: Lisinopril 20 MG Tablet PO (13:41)
[2018-04-19] MEDS: proCHLORPERazine 10 MG/2 ML Vial IV (13:46)
[2018-04-19 18:26] LABS: Bedside Glucose 154 mg/dL (70-110)
[2018-04-20] VITALS (16 sets, daily range): BP systolic 100–136; BP diastolic 61–70; PULSE 63–81; RESP 12–18; TEMP 36.6–37.1; O2SAT 92–97
[2018-04-20] MEDS: Insulin Lispro 100 UNIT/ML INSULN.PEN SC ×4 (00:08→18:14)
[2018-04-20 00:15] LABS: Bedside Glucose 204 mg/dL (70-110)
[2018-04-20] MEDS: Lactated Ringers 1,000 ML 100 ML IV ×2 (06:29→17:16)
[2018-04-20] MEDS: proCHLORPERazine 10 MG/2 ML Vial IV ×2 (06:58→14:15)
--- NOTE | 2018-04-20 09:18 | PCM.PN.SRG ---
Subjective: passing flatus since last night, still some nausea - Physical Exam General: Alert, Oriented x3, Cooperative Lungs: Clear to auscultation, Normal air movement Cardiovascular: Regular rate, Regular Rhythm Abdomen: Bowel Sounds Present, Soft, Non Tender, - - incision with some drainage, repacked, CAMILO drain serous Vital Signs Temp Pulse Resp BP Pulse Ox 98.4 F 72 16 136/70 H 93 04/20/18 06:00 04/20/18 06:00 04/20/18 07:35 04/20/18 06:00 04/20/18 07:35 Oxygen Flow Rate (L/min) 0.5 Oxygen Delivery Method Nasal Cannula Weight: 71.8 kg Body Mass Index (BMI) 24.5 Intake and Output for Last 24 Hours 04/18/18 04/19/18 04/20/18 23:59 23:59 23:59 Intake Total 3111 / 3111 4741 / 4741 2489 / 2489 Output Total 2147 / 2147 3125 / 3125 1810 / 1810 Balance 964 / 964 1616 / 1616 679 / 679 Microbiology Past 72 Hours 04/17/18 14:10 Gram Stain - Final Tissue - Abdominal Wound Culture - Final Escherichia coli Anaerobic Culture - Preliminary Checking for anaerobes, further studies to follow. POC Glucose 04/20/18 04/19/18 04/19/18 00:05 18:13 11:33 POC Glucose 204 H 154 H 187 H Medical Necessity - Tobacco Use Smoking Status: Never smoker Assessment/Plan postoperatively #3/12. Status post exploratory laparotomy, reclosure of fascial dehiscence, status post open sigmoid resection with splenic flexure mobilization for large bulky tumor. pathology returned as a 4 cm tumor with 6 out of 31 lymph nodes positive, the largest being a 1.2 cm metastatic nodule. All margins were felt to be appropriate with the closest radial margin 1.5 cm. There was significant. Colonic and peritumoral inflammation along with what was felt to be diverticulitis explaining how the actual pelvic mass was much larger than the tumor size fortunately. 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 fascial dehiscence-patient had significant fluid output on Sunday from the inferior aspect of the incision which was felt to be a subcutaneous infection. With reevaluation of the last 2 days. This was then felt to be truly a dehiscence. He was taken to the OR yesterday, had exploration. Inspection into the pelvis did not completely demonstrate the anastomosis but noted no bile staining or collections worrisome for an anastomotic leak. CT scan obtained on Sunday and the no signs of a leak. Patient's fascia was closed with interrupted 0 Prolene abssxb-[id number]-[id number] sutures and wound, left back area. Wound appears to be granulating this morning with no further complications noted. We'll continue twice a day packing. he noted passing flatus overnight. We'll restart clear liquids. malnutrition-patient had lost 40 pounds prior to surgery. He had just started retaking orals on Sunday. After talking to his , she notes that he really had poor oral intake, Sunday, Sunday and Sunday. given the history of malnutrition and now postoperative lack of adequate oral nutrition, we will place PICC line and start TPN, even given the risks. We will start standard central mixture, 20% Intralipid. We will check Accu-Cheks [id number]. We'll repeat laboratory studies sunday. we'll start insulins 70/30 twice a day to try to lower overall blood glucose and continue sliding scale. obtained prealbumin level to assess baseline for comparison later on in week area. History of tobacco use.-Patient was using chewing tobacco. Prior to surgery last week. We'll have his encourage patient not to use chewing tobacco or nicotine products throughout this competent healing process. VTE prophylaxis-SCDs and Lovenox, given history of malignancy leukocytosis-postoperatively only obvious abnormality was bilateral atelectasis. Patient with fever over the weekend and mildly elevated white count. We will follow white blood cell count, no signs of anastomotic leak at surgery, no urinary complaints. We will encourage incentive spirometry use. We'll encourage sitting up in a chair and ambulation. culture GNR. - Escherichia coli-resistant to Levaquin, changed to ceftriaxone and Flagyl. Will have physical therapy assist in reconditioning. Once return of bowel function, will likely need Rehab for deconditioning
--- NOTE | 2018-04-20 09:21 | PN.SURG_ITS ---
Subjective: passing flatus since last night, still some nausea - Physical Exam General: Alert, Oriented x3, Cooperative Lungs: Clear to auscultation, Normal air movement Cardiovascular: Regular rate, Regular Rhythm Abdomen: Bowel Sounds Present, Soft, Non Tender, - - incision with some drainage , repacked, CAMILO drain serous Vital Signs Temp Pulse Resp BP Pulse Ox 98.4 F 72 16 136/70 H 93 04/20/18 06:00 04/20/18 06:00 04/20/18 07:35 04/20/18 06:00 04/20/18 07:35 Oxygen Flow Rate (L/min) 0.5 Oxygen Delivery Method Nasal Cannula Weight: 71.8 kg Body Mass Index (BMI) 24.5 Intake and Output for Last 24 Hours 04/18/18 04/19/18 04/20/18 23:59 23:59 23:59 Intake Total 3111 / 3111 4741 / 4741 2489 / 2489 Output Total 2147 / 2147 3125 / 3125 1810 / 1810 Balance 964 / 964 1616 / 1616 679 / 679 Microbiology Past 72 Hours 04/17/18 14:10 Gram Stain - Final Tissue - Abdominal Wound Culture - Final Escherichia coli Anaerobic Culture - Preliminary Checking for anaerobes, further studies to follow. POC Glucose 04/20/18 04/19/18 04/19/18 00:05 18:13 11:33 POC Glucose 204 H 154 H 187 H Medical Necessity - Tobacco Use Smoking Status: Never smoker Assessment/Plan postoperatively #3/12. Status post exploratory laparotomy, reclosure of fascial dehiscence, status post open sigmoid resection with splenic flexure mobilization for large bulky tumor. pathology returned as a 4 cm tumor with 6 out of 31 lymph nodes positive, the largest being a 1.2 cm metastatic nodule. All margins were felt to be appropriate with the closest radial margin 1.5 cm. There was significant. Colonic and peritumoral inflammation along with what was felt to be diverticulitis explaining how the actual pelvic mass was much larger than the tumor size fortunately. 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 fascial dehiscence-patient had significant fluid output on Sunday from the inferior aspect of the incision which was felt to be a subcutaneous infection. With reevaluation of the last 2 days. This was then felt to be truly a dehiscence. He was taken to the OR yesterday, had exploration. Inspection into the pelvis did not completely demonstrate the anastomosis but noted no bile staining or collections worrisome for an anastomotic leak. CT scan obtained on Sunday and the no signs of a leak. Patient's fascia was closed with interrupted 0 Prolene remmaf-ah-bniiz sutures and wound, left back area. Wound appears to be granulating this morning with no further complications noted. We'll continue twice a day packing. he noted passing flatus overnight. We'll restart clear liquids. malnutrition-patient had lost 40 pounds prior to surgery. He had just started retaking orals on Sunday. After talking to his , she notes that he really had poor oral intake, Sunday, Sunday and Sunday. given the history of malnutrition and now postoperative lack of adequate oral nutrition, we will place PICC line and start TPN, even given the risks. We will start standard central mixture, 20% Intralipid. We will check Accu-Cheks [id number]-yhz-[id number]. We 'll repeat laboratory studies sunday. we'll start insulins 70/30 twice a day to try to lower overall blood glucose and continue sliding scale. obtained prealbumin level to assess baseline for comparison later on in week area. History of tobacco use.-Patient was using chewing tobacco. Prior to surgery last week. We'll have his encourage patient not to use chewing tobacco or nicotine products throughout this competent healing process. VTE prophylaxis-SCDs and Lovenox, given history of malignancy leukocytosis-postoperatively only obvious abnormality was bilateral atelectasis. Patient with fever over the weekend and mildly elevated white count. We will follow white blood cell count, no signs of anastomotic leak at surgery, no urinary complaints. We will encourage incentive spirometry use. We 'll encourage sitting up in a chair and ambulation. culture GNR. - Escherichia coli-resistant to Levaquin, changed to ceftriaxone and Flagyl. Will have physical therapy assist in reconditioning. Once return of bowel function, will likely need Rehab for deconditioning
[2018-04-20] MEDS: Lisinopril 20 MG Tablet PO (09:53)
[2018-04-20] MEDS: Enoxaparin 40 MG/0.4 ML Syringe SC (09:53)
[2018-04-20] MEDS: Metoprolol(XL)Succ 50 MG Tablet PO (09:53)
[2018-04-20] MEDS: HYDROmorphone PCA 0.2 MG/ML 100 ML BAG 20 MG IV (10:25)
[2018-04-20 11:21] LABS: Bedside Glucose 190 mg/dL (70-110)
[2018-04-20 16:51] LABS: Bedside Glucose 175 mg/dL (70-110)
[2018-04-20] MEDS: Fat Emulsions 20% 250 ML IV (17:12)
[2018-04-20 18:25] LABS: Bedside Glucose 177 mg/dL (70-110)
[2018-04-20 22:26] LABS: Bedside Glucose 178 mg/dL (70-110)
[2018-04-21] VITALS (14 sets, daily range): BP systolic 112–128; BP diastolic 64–75; PULSE 55–80; RESP 12–18; TEMP 37–37.7; O2SAT 91–95
[2018-04-21] MEDS: Insulin Lispro 100 UNIT/ML INSULN.PEN SC ×4 (00:21→17:25)
[2018-04-21 00:31] LABS: Bedside Glucose 194 mg/dL (70-110)
[2018-04-21] MEDS: Lactated Ringers 1,000 ML 100 ML IV ×2 (04:10→16:47)
[2018-04-21 07:01] LABS: Bedside Glucose 225 mg/dL (70-110)
--- NOTE | 2018-04-21 09:19 | PN.SURG_ITS ---
Subjective: small bowel movement, continued flatus. Still, some nausea - Physical Exam General: Alert, Oriented x3 Lungs: Clear to auscultation, Normal air movement Cardiovascular: Regular rate, Regular Rhythm Abdomen: Bowel Sounds Present, Soft, Tender - along incisions, serous drainage from CAMILO drain Vital Signs Temp Pulse Resp BP Pulse Ox 99.3 F H 65 16 125/75 H 91 04/21/18 07:57 04/21/18 07:57 04/21/18 07:57 04/21/18 07:57 04/21/18 08:10 Oxygen Flow Rate (L/min) 0.5 Oxygen Delivery Method Room Air Weight: 78.5 kg Body Mass Index (BMI) 24.5 Intake and Output for Last 24 Hours 04/19/18 04/20/18 04/21/18 23:59 23:59 23:59 Intake Total 4741 / 4741 4711 / 4711 2949 / 2949 Output Total 3125 / 3125 3260 / 3260 2845 / 2845 Balance 1616 / 1616 1451 / 1451 104 / 104 Microbiology Past 72 Hours 04/17/18 14:10 Gram Stain - Final Tissue - Abdominal Wound Culture - Final Escherichia coli Anaerobic Culture - Preliminary Checking for anaerobes, further studies to follow. POC Glucose 04/21/18 04/21/18 04/20/18 06:41 00:19 22:01 POC Glucose 225 H 194 H 178 H 04/20/18 04/20/18 04/20/18 18:13 11:05 06:53 POC Glucose 177 H 190 H 175 H Medical Necessity - Tobacco Use Smoking Status: Never smoker Assessment/Plan postoperatively #01/11. Status post exploratory laparotomy, reclosure of fascial dehiscence, status post open sigmoid resection with splenic flexure mobilization for large bulky tumor. pathology returned as a 4 cm tumor with 6 out of 31 lymph nodes positive, the largest being a 1.2 cm metastatic nodule. All margins were felt to be appropriate with the closest radial margin 1.5 cm. There was significant. Colonic and peritumoral inflammation along with what was felt to be diverticulitis explaining how the actual pelvic mass was much larger than the tumor size fortunately. 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 fascial dehiscence-patient had significant fluid output on Sunday from the inferior aspect of the incision which was felt to be a subcutaneous infection. With reevaluation of the last 2 days. This was then felt to be truly a dehiscence. He was taken to the OR yesterday, had exploration. Inspection into the pelvis did not completely demonstrate the anastomosis but noted no bile staining or collections worrisome for an anastomotic leak. CT scan obtained on Sunday and the straight no signs of a leak. Patient's fascia was closed with interrupted 0 Prolene qvsuhp-sf-[id number] sutures and wound, left back area. Wound appears to be granulating this morning with no further complications noted. We'll continue twice a day packing. he note improved passing flatus. He has improved bowel sounds. We'll radvanced to full liquids- no fiber, add lean protein. malnutrition-patient had lost 40 pounds prior to surgery. He had just started retaking orals on Sunday. After talking to his , she notes that he really had poor oral intake, Sunday, Sunday and Sunday. given the history of malnutrition and now postoperative lack of adequate oral nutrition, we will place PICC line and start TPN, even given the risks. We will start standard central mixture, 20% Intralipid. We will check Accu-Cheks [id number]. We 'll repeat laboratory studies sunday. we'll start insulins 70/30 twice a day to try to lower overall blood glucose and continue sliding scale. obtained prealbumin level to assess baseline for comparison later on in week area. History of tobacco use.-Patient was using chewing tobacco. Prior to surgery last week. We'll have his encourage patient not to use chewing tobacco or nicotine products throughout this competent healing process. VTE prophylaxis-SCDs and Lovenox, given history of malignancy. patient notes improved overall pain. 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 Patient with fever over the weekend and mildly elevated white count. We will follow white blood cell count, no signs of anastomotic leak at surgery, no urinary complaints. We will encourage incentive spirometry use. We 'll encourage sitting up in a chair and ambulation. culture GNR. - Escherichia coli-resistant to Levaquin, changed to ceftriaxone and Flagyl. Will have physical therapy assist in reconditioning. Once return of bowel function, will likely need Rehab for deconditioning
[2018-04-21] MEDS: Enoxaparin 40 MG/0.4 ML Syringe SC (09:38)
[2018-04-21] MEDS: Metoprolol(XL)Succ 50 MG Tablet PO (09:40)
[2018-04-21] MEDS: Lisinopril 20 MG Tablet PO (09:40)
[2018-04-21] MEDS: oxyCODONE 5 MG Tablet PO (09:42)
[2018-04-21 11:20] LABS: Bedside Glucose 223 mg/dL (70-110)
[2018-04-21] MEDS: proCHLORPERazine 10 MG/2 ML Vial IV ×2 (14:49→21:00)
[2018-04-21 17:35] LABS: Bedside Glucose 198 mg/dL (70-110)
[2018-04-21 21:41] LABS: Bedside Glucose 196 mg/dL (70-110)
[2018-04-22] VITALS (9 sets, daily range): BP systolic 128–137; BP diastolic 79–91; PULSE 70–82; RESP 16; TEMP 36.7–37.6; O2SAT 95–99
[2018-04-22] MEDS: Insulin Lispro 100 UNIT/ML INSULN.PEN SC ×4 (00:05→16:38)
[2018-04-22 00:15] LABS: Bedside Glucose 155 mg/dL (70-110)
[2018-04-22] MEDS: Lactated Ringers 1,000 ML 100 ML IV ×2 (03:53→16:37)
[2018-04-22 05:54] LABS: Absolute Lymphocyte Count 1.04 X10^3/ul (0.83-4.51); Basophil# 0.04 X10^3/uL; Basophil% 0.5 % (0-1); Eosinophil# 0.33 X10^3/uL; Eosinophils% 3.9 % (0-5); Hematocrit 31.6 % (40-54); Hemoglobin 9.8 g/dl (13.0-16.5); Lymphocyte # 1.04 X10^3/ul (4.0); Lymphocyte % 12.4 % (19-41); Mean Corpuscular Hgb 26.6 pg (27.0-32.0); Mean Corpuscular Volume 85.6 fL (80-94); Mean Platelet Vol. 10.2 fl (6.2-12.0); Monocyte# 0.93 X10^3/uL; Monocyte% 11.1 % (0-10); Neutrophil # 5.96 X10^3/uL (2.7-7.7); Neutrophil % 71.1 % (47-70); Platelet Count 340 K/mm3 (150-450); RBC Distribution Width SD 46.7 fl (35.1-43.9); Red Blood Count 3.69 M/mm3 (4.6-6.2); White Blood Count 8.4 K/mm3 (4.4-11.0)
[2018-04-22 06:00] LABS: Bedside Glucose 212 mg/dL (70-110)
[2018-04-22 06:15] LABS: ALB/GLOB Ratio 0.4 RATIO (0.9-2.4); AST(SGOT) 45 U/L (15-37); Alanine Aminotransfer ALT/SGPT 31 U/L (16-61); Albumin, Serum 1.7 g/dL (3.2-5.0); Alkaline Phosphatase 109 U/L (45-117); Anion Gap 7 (5-15); BUN 11 mg/dL (7-18); BUN/Creat Ratio 18.8 RATIO (10-20); Calcium,Total 7.8 mg/dL (8.5-10.1); Chloride 103 mmol/L (98-107); Creatinine, Serum 0.58 mg/dL (0.70-1.30); EST Glomerular Filtration Rate 145 mL/min (>60); Est Glom Filt Rate - Afr Amer 175 mL/min (>60); Estimated Creatinine Clearance 60.26 ml/min; Globulin 4.2 g/dL (2.2-4.2); Glucose 204 mg/dL (74-106); Potassium 4.1 mmol/L (3.5-5.1); Protein, Total 5.9 g/dL (6.4-8.2); Sodium Level 140 mmol/L (136-145)
[2018-04-22 06:35] LABS: POSITIVE COUNT NO; POSITIVE DIFFERENTIAL NO; POSITIVE MORPHOLOGY NO
[2018-04-22] MEDS: Metoprolol(XL)Succ 50 MG Tablet PO (08:55)
[2018-04-22] MEDS: Lisinopril 20 MG Tablet PO (08:55)
[2018-04-22] MEDS: Enoxaparin 40 MG/0.4 ML Syringe SC (08:55)
[2018-04-22] MEDS: 0.9% NaCl Peripheral Flush Adult/Peds IV ×2 (10:02→10:06)
[2018-04-22] MEDS: proCHLORPERazine 10 MG/2 ML Vial IV (10:06)
[2018-04-22 11:20] LABS: Bedside Glucose 227 mg/dL (70-110)
[2018-04-22 17:20] LABS: Bedside Glucose 183 mg/dL (70-110)
[2018-04-22 22:16] LABS: Bedside Glucose 206 mg/dL (70-110)
[2018-04-23] MEDS: Insulin Lispro 100 UNIT/ML INSULN.PEN SC ×4 (00:19→17:29)
[2018-04-23 00:21] LABS: Bedside Glucose 156 mg/dL (70-110)
[2018-04-23 02:15] VITALS: BP 134/93; PULSE 72; RESP 18; TEMP 36.6; O2SAT 96
[2018-04-23] MEDS: Lactated Ringers 1,000 ML 100 ML IV ×2 (03:03→16:44)
[2018-04-23 05:26] LABS: Bedside Glucose 221 mg/dL (70-110)
--- NOTE | 2018-04-23 07:00 | PN.SURG_ITS ---
Subjective: 1 bowel movement overnight, multiple episodes of flatus, no further nausea - Physical Exam General: Alert, Oriented x3 Lungs: Clear to auscultation, Normal air movement Cardiovascular: Regular rate, Regular Rhythm Abdomen: Bowel Sounds Present, Soft, Non Tender, - - incision granulating as expected, wound packed, Tariq-Rogers with serous nonpurulent drainage Vital Signs Temp Pulse Resp BP Pulse Ox 97.9 F 72 18 134/93 H 96 04/23/18 02:15 04/23/18 02:15 04/23/18 02:15 04/23/18 02:15 04/23/18 02:15 Oxygen Flow Rate (L/min) 0.5 Oxygen Delivery Method Room Air Weight: 70.5 kg Body Mass Index (BMI) 24.5 Intake and Output for Last 24 Hours 04/21/18 04/22/18 04/23/18 23:59 23:59 23:59 Intake Total 5301 / 5301 4381 / 4381 2353 / 2353 Output Total 4405 / 4405 4660 / 4660 Balance 896 / 896 -279 / -279 2353 / 2353 Microbiology Past 72 Hours 04/17/18 14:10 Gram Stain - Final Tissue - Abdominal Wound Culture - Final Escherichia coli Anaerobic Culture - Final No anaerobic bacteria isolated. POC Glucose 04/23/18 04/23/18 04/22/18 05:15 00:14 21:22 POC Glucose 221 H 156 H 206 H 04/22/18 04/22/18 16:37 11:03 POC Glucose 183 H 227 H Medical Necessity - Tobacco Use Smoking Status: Never smoker Assessment/Plan postoperatively #/. Status post exploratory laparotomy, reclosure of fascial dehiscence, status post open sigmoid resection with splenic flexure mobilization for large bulky tumor. pathology returned as a 4 cm tumor with 6 out of 31 lymph nodes positive, the largest being a 1.2 cm metastatic nodule. All margins were felt to be appropriate with the closest radial margin 1.5 cm. There was significant. Colonic and peritumoral inflammation along with what was felt to be diverticulitis explaining how the actual pelvic mass was much larger than the tumor size fortunately. 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 fascial dehiscence-patient had significant fluid output on Sunday from the inferior aspect of the incision which was felt to be a subcutaneous infection. With reevaluation of the last 2 days. This was then felt to be truly a dehiscence. He was taken to the OR yesterday, had exploration. Inspection into the pelvis did not completely demonstrate the anastomosis but noted no bile staining or collections worrisome for an anastomotic leak. CT scan obtained on Sunday and the no signs of a leak. Patient's fascia was closed with interrupted 0 Prolene [id number] sutures and wound, left back area. Wound appears to be granulating this morning with no further complications noted. We'll continue twice a day packing. he note improved passing flatus. He has improved bowel sounds. We'll radvanced to full liquids- no fiber, add lean protein. malnutrition-patient had lost 40 pounds prior to surgery. He had just started retaking orals on Sunday. After talking to his , she notes that he really had poor oral intake, Sunday, Sunday and Sunday. given the history of malnutrition and now postoperative lack of adequate oral nutrition, we will place PICC line and start TPN, even given the risks. We will start standard central mixture, 20% Intralipid. We will check Accu-Cheks [id number]. We 'll repeat laboratory studies sunday. we'll start insulins 70/30 twice a day to try to lower overall blood glucose and continue sliding scale. obtained prealbumin level to assess baseline for comparison later on in week area. History of tobacco use.-Patient was using chewing tobacco. Prior to surgery last week. We'll have his encourage patient not to use chewing tobacco or nicotine products throughout this competent healing process. VTE prophylaxis-SCDs and Lovenox, given history of malignancy. patient notes improved overall pain. Will encourage patient to use oral OxyIR, if tolerating pain will DC CREAM HAULER leukocytosis-postoperatively only obvious abnormality was bilateral atelectasis. Patient with fever over the weekend and mildly elevated white count. We will follow white blood cell count, no signs of anastomotic leak at surgery, no urinary complaints. We will encourage incentive spirometry use. We 'll encourage sitting up in a chair and ambulation. culture GNR. - Escherichia coli-resistant to Levaquin, changed to ceftriaxone and Flagyl. Will have physical therapy assist in reconditioning. Once return of bowel function, will likely need Rehab for deconditioning
[2018-04-23 08:15] VITALS: BP 129/77; PULSE 74; RESP 18; TEMP 36.7; O2SAT 98
--- NOTE | 2018-04-23 09:19 | CASEMGMT ---
Social Work Note JUANJO Joaquin updated this worker that Dr. Tirado is wanting pt to go to inpatient rehab to continue to monitor his TPN and get rehab after his surgery. [place]IA placed a call to referral line and spoke with Aretha. Aretha states that pt's insurance won't approve for pt to go to Inpatient Rehab and TCU won't accept TPN. [place] updated JUANJO Joaquin of this. Joann Mathew LENS BLOCK GAUGER, STEEL POST INSTALLER SUPERVISOR
--- NOTE | 2018-04-23 10:13 | CASEMGMT ---
Addendum entered by Joann Mathew 04/23/18 11:51: [place] faxed referral to Shannan at [facility]. Original Note: Social Work Note SW met with pt to confirm discharge plans. SW introduced self and role at [facility]. Pt is alert and orientated x4. SW informed pt that Dr. Tirado requested that pt go to at discharge to continue to monitor TPN and rehabilitation. Pt confirms that Dr. Tirado talked to him about this. SW informed pt that his insurance won't approve for pt to go to and TCU doesn't take TPN. SW provided pt with list of in network facilities with pt's insurance and informed pt that this worker will have to call facilities to confirm if they are able to take TPN. Pt states understanding. Pt states that he has no preference on SNF and is willing to go to SNF in [place] or [place] as pt is from [place]. Pt agreeable to this worker making referrals to either [facility] or [facility] or [facility] and to determine if they are able to take TPN. [place] placed a call to Shannan at [facility]. Shannan states that she is able to take TPN pt. V[place]IA will fax referral to [facility] today. Plan: [facility] pending acceptance and pre-cert Joann Mathew STEAMBLASTER, RN ORTHOPAEDICS
[2018-04-23] MEDS: Enoxaparin 40 MG/0.4 ML Syringe SC (11:19)
[2018-04-23 11:21] VITALS: PULSE 86
[2018-04-23] MEDS: Metoprolol(XL)Succ 50 MG Tablet PO (11:21)
[2018-04-23] MEDS: Lisinopril 20 MG Tablet PO (11:21)
[2018-04-23 12:00] LABS: Bedside Glucose 207 mg/dL (70-110)
--- NOTE | 2018-04-23 13:45 | CASEMGMT ---
Social Work Note SW spoke with pt as pt may be a good candidate for Palliative Care referral. SW introduced self and role at [facility]. Pt is alert and orientated x3. SW educated pt on Palliative Care and provided pt with brochure for Palliative Care. At this time pt is unsure if he would like a referral made to Palliative Care. SW encouraged pt to look over brochure and this SW will check with pt tomorrow to see if he would like a referral made. Pt states understanding. Joann Mathew SAMPLE CHECKER, GREEN MARKETING ANALYST
--- NOTE | 2018-04-23 14:23 | CASEMGMT ---
Social Work Note SW received message from Shannan at [facility] stating that she is unable to accept pt at this time. SW placed a call to [facility] and per Urszula they are unable to accept pt with TPN. [place] placed a call to [facility] and left a message for Alina asking if she is able to accept pt with TPN. [place]IA faxed referral to Alina at [facility]. Plan: Discharge to [facility] pending acceptance and pre-cert Joann Mathew BORING MILL SET UP OPERATOR, DISPENSING OPERATOR
[2018-04-23 15:00] VITALS: BP 131/68; PULSE 84; RESP 18; TEMP 36.7; O2SAT 95
[2018-04-23] MEDS: Fat Emulsions 20% 250 ML IV (16:44)
[2018-04-23 17:10] LABS: Bedside Glucose 163 mg/dL (70-110)
--- NOTE | 2018-04-23 18:29 | PCM.PN.SRG ---
Subjective: 1 bowel movement overnight, multiple episodes of flatus, no nausea - Physical Exam General: Alert, Oriented x3 Lungs: Clear to auscultation, Normal air movement Cardiovascular: Regular rate, No murmurs Abdomen: Bowel Sounds Present, Soft, Non Tender, Non-Distended, - - granulation tissue present at open wound site-packing xeteemibq-Htqxkje-Uljcn drain with serous drainage Vital Signs Temp Pulse Resp BP Pulse Ox 98.1 F 84 18 131/68 H 95 04/23/18 15:00 04/23/18 15:00 04/23/18 15:00 04/23/18 15:00 04/23/18 15:00 Oxygen Flow Rate (L/min) 0.5 Oxygen Delivery Method Room Air Weight: 70.5 kg Body Mass Index (BMI) 24.5 Intake and Output for Last 24 Hours 04/21/18 04/22/18 04/23/18 23:59 23:59 23:59 Intake Total 5301 / 5301 4381 / 4381 3813 / 3813 Output Total 4405 / 4405 4660 / 4660 700 / 700 Balance 896 / 896 -279 / -279 3113 / 3113 Microbiology Past 72 Hours 04/17/18 14:10 Gram Stain - Final Tissue - Abdominal Wound Culture - Final Escherichia coli Anaerobic Culture - Final No anaerobic bacteria isolated. POC Glucose 04/23/18 04/23/18 04/23/18 17:03 11:58 05:15 POC Glucose 163 H 207 H 221 H 04/23/18 04/22/18 00:14 21:22 POC Glucose 156 H 206 H Medical Necessity - Tobacco Use Smoking Status: Never smoker Assessment/Plan postoperatively #03/15. Status post exploratory laparotomy, reclosure of fascial dehiscence, status post open sigmoid resection with splenic flexure mobilization for large bulky tumor. pathology returned as a 4 cm tumor with 6 out of 31 lymph nodes positive, the largest being a 1.2 cm metastatic nodule. All margins were felt to be appropriate with the closest radial margin 1.5 cm. There was significant. Colonic and peritumoral inflammation along with what was felt to be diverticulitis explaining how the actual pelvic mass was much larger than the tumor size fortunately. 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 fascial dehiscence-patient had significant fluid output on Sunday from the inferior aspect of the incision which was felt to be a subcutaneous infection. With reevaluation of the last 2 days. This was then felt to be truly a dehiscence. He was taken to the OR yesterday, had exploration. Inspection into the pelvis did not completely demonstrate the anastomosis but noted no bile staining or collections worrisome for an anastomotic leak. CT scan obtained on Sunday and the straight no signs of a leak. Patient's fascia was closed with interrupted 0 Prolene luocji-bi-gqwmq sutures and wound, left back area. Wound appears to be granulating this morning with no further complications noted. We'll continue twice a day packing. he note improved passing flatus. He has improved bowel sounds. advanced to regular diet and tolerated overnight. We'll obtain calorie counts and asked for suggestions for nutritional supplementation. Given starvation and deconditioning malnutrition-patient had lost 40 pounds prior to surgery. He had just started retaking orals on Sunday. After talking to his , she notes that he really had poor oral intake, Sunday, Sunday and Sunday. given the history of malnutrition and now postoperative lack of adequate oral nutrition, we will place PICC line and start TPN, even given the risks. We will start standard central mixture, 20% Intralipid. We will check Accu-Cheks [id number]. We'll repeat laboratory studies sunday. we'll start insulins 70/30 twice a day to try to lower overall blood glucose and continue sliding scale. obtained prealbumin level to assess baseline for comparison later on in week area. History of tobacco use.-Patient was using chewing tobacco. Prior to surgery last week. We'll have his encourage patient not to use chewing tobacco or nicotine products throughout this competent healing process. VTE prophylaxis-SCDs and Lovenox, given history of malignancy. patient notes improved overall pain. Will encourage patient to use oral OxyIR, if tolerating pain will DC MINERAL WOOL INSULATION SUPERVISOR leukocytosis-postoperatively only obvious abnormality was bilateral atelectasis. Patient with fever over the weekend and mildly elevated white count. We will follow white blood cell count, no signs of anastomotic leak at surgery, no urinary complaints. We will encourage incentive spirometry use. We'll encourage sitting up in a chair and ambulation. culture GNR. - Escherichia coli-resistant to Levaquin, changed to ceftriaxone and Flagyl. Will have physical therapy assist in reconditioning. Once return of bowel function, will likely need Rehab for deconditioning
[2018-04-23 20:30] VITALS: BP 134/77; PULSE 67; RESP 16; TEMP 37.2; O2SAT 98
[2018-04-23 23:10] LABS: Bedside Glucose 143 mg/dL (70-110)
[2018-04-24] MEDS: 0.9% NaCl Peripheral Flush Adult/Peds IV (05:50)
--- NOTE | 2018-04-24 05:51 | NURSING ---
PICC line flushes easily but unable to get blood return from either port. Called lab to draw his blood.
--- NOTE | 2018-04-24 06:13 | PCM.TXEXTCAR ---
- Diet 04/22/18 09:55 Diet: Regular Diet Is pt able to select menu?: Yes Diet Comments: no fiber, lean chicken breast or beef OK - Routine Orders/Code Status O2 Frequency: PRN Routine Lab Work: CBC, - - cmp, mg, phos, prealbumin on April 29 - Wound(s) ABDOMINAL Wound Type: Surgical Incision Dressing Change: moist to dry BID - Therapies Weight Bearing: Full weight bearing Physical Therapy: Eval and Treat Occupational Therapy: Eval and Treat - Allergies/Procedures Done in Hospital Allergies/Adverse Reactions: Allergies Penicillins Allergy (Verified 04/17/18 12:34) Shortness of breath - Type of Care/Length of Stay Estimated LOS: Convalescent Care Less Than 30 days Type of Care Needed: Acute Rehab Rehab Potential: Good Prognosis: Good - Additional Orders/Day of Discharge H&P will serve as current which was dated: 04/17/18 Day of Discharge: 04/24/18 - Dietary and Speech Recommendations Dietitian Recommendations/Changes: Rec daily wts and labs. As able, rec wean from TPN as po intake improves - ambar count in progress x 3 days beginning 04/22/18. Will provide magic cup or Mighty Shake as ONS w/ meals- pt is on a no fiber diet and Ensure Enlive/Ensure pudding contain fiber. Will continue w/ Ensure Clear 120 mL 4x/day via medpass. - Follow Up Care Primary Care Physician: Teo Monsalve MD [Primary Care Provider] - Please Follow Up With: Wilmer Tirado MD When: April 30 in my office
[2018-04-24 06:23] LABS: Absolute Lymphocyte Count 1.65 X10^3/ul (0.83-4.51); Absolute Neutrophil Count 6.3 X10^3/uL (2.0-7.7); Basophil# 0.09 X10^3/uL; Basophil% 0.9 % (0-1); Eosinophil# 0.49 X10^3/uL; Eosinophils% 5.1 % (0-5); Hematocrit 33.1 % (40-54); Hemoglobin 10.6 g/dl (13.0-16.5); Lymphocyte # 1.65 X10^3/ul (4.0); Lymphocyte % 17.3 % (19-41); Mean Corpuscular Hgb 27.4 pg (27.0-32.0); Mean Corpuscular Volume 85.5 fL (80-94); Mean Platelet Vol. 10.3 fl (6.2-12.0); Monocyte# 0.87 X10^3/uL; Monocyte% 9.1 % (0-10); Neutrophil # 6.33 X10^3/uL (2.7-7.7); Neutrophil % 66.3 % (47-70); Platelet Count 340 K/mm3 (150-450); RBC Distribution Width CV 15.4 % (11.6-14.6); RBC Distribution Width SD 47.5 fl (35.1-43.9); Red Blood Count 3.87 M/mm3 (4.6-6.2); White Blood Count 9.6 K/mm3 (4.4-11.0)
[2018-04-24 06:24] LABS: POSITIVE COUNT NO; POSITIVE DIFFERENTIAL NO; POSITIVE MORPHOLOGY NO
--- NOTE | 2018-04-24 06:34 | PCM.DC ---
- Discharge Diagnoses Current Active Problems: colon resection wound infection You will use the following diet at home:: Regular Your food should be the consistency of: Regular Discharge Activity: Return to Normal Activity May shower in (days): 0 - cover arm for shower Weight Bearing Status: Full weight bearing Call your doctor if your incision/area has: Continuous Slow Oozing Change Dressing in (Days):: 0 Additional Dressing/Incision Instructions:: moist to dry dressing twice a day Allergies/Adverse Reactions: Allergies Penicillins Allergy (Verified 04/17/18 12:34) Shortness of breath Medications to take at Discharge Lisinopril [Zestril] 20 mg PO DAILY 03/12/14 Metoprolol(XL)Succ [Toprol Xl (Beta Priscilla)] 50 mg PO DAILY 03/12/14 Ibuprofen [Motrin] 400 mg PO Q4H PRN PRN tablet 04/14/18 Oxycodone [Oxyir] 5 mg PO Q4H PRN PRN 7 Days #12 tab 04/14/18 Prochlorperazine Maleate [Compazine] 5 mg PO 4X/DAY PRN PRN #10 tab 04/14/18 Enoxaparin [Lovenox] 40 mg SC DAILY syringe 04/24/18 Ensure Clear 120 ml PO 4X/DAY liquid 04/24/18 Ibuprofen [Motrin] 400 mg PO Q4H PRN PRN tablet 04/24/18 Insulin Human 70/30 [Novolog Mix 70-30 Flexpen Syrn] 18 units SC Q12 flexpen 04/24/18 Insulin Lispro [Humalog KwikPen] See Protocol SC Q6 insuln.pen 04/24/18 Primary Care Physician: Teo Monsalve MD [Primary Care Provider] - Test Results: Test results from this visit will be discussed in further detail at your follow-up appointment, if applicable. Please Follow Up With: Wilmer Tirado MD When: April 30 in my office
--- NOTE | 2018-04-24 06:41 | DCINST_ITS ---
- Discharge Diagnoses Current Active Problems: colon resection wound infection You will use the following diet at home:: Regular Your food should be the consistency of: Regular Discharge Activity: Return to Normal Activity May shower in (days): 0 - cover arm for shower Weight Bearing Status: Full weight bearing Call your doctor if your incision/area has: Continuous Slow Oozing Change Dressing in (Days):: 0 Additional Dressing/Incision Instructions:: moist to dry dressing twice a day Allergies/Adverse Reactions: Allergies Penicillins Allergy (Verified 04/17/18 12:34) Shortness of breath Medications to take at Discharge Lisinopril [Zestril] 20 mg PO DAILY 03/12/14 Metoprolol(XL)Succ [Toprol Xl (Beta Priscilla)] 50 mg PO DAILY 03/12/14 Ibuprofen [Motrin] 400 mg PO Q4H PRN PRN tablet 04/14/18 Oxycodone [Oxyir] 5 mg PO Q4H PRN PRN 7 Days #12 tab 04/14/18 Prochlorperazine Maleate [Compazine] 5 mg PO 4X/DAY PRN PRN #10 tab 04/14/18 Enoxaparin [Lovenox] 40 mg SC DAILY syringe 04/24/18 Ensure Clear 120 ml PO 4X/DAY liquid 04/24/18 Ibuprofen [Motrin] 400 mg PO Q4H PRN PRN tablet 04/24/18 Insulin Human 70/30 [Novolog Mix 70-30 Flexpen Syrn] 18 units SC Q12 flexpen Insulin Lispro [Humalog KwikPen] See Protocol SC Q6 insuln.pen 04/24/18 Primary Care Physician: Teo Monsalve MD [Primary Care Provider] - Test Results: Test results from this visit will be discussed in further detail at your follow- up appointment, if applicable. Please Follow Up With: Wilmer Tirado MD When: April 30 in my office
--- NOTE | 2018-04-24 06:46 | PCM.DC.SUM ---
Discharge Date and Diagnosis Date of Admission: 04/17/18 Date of Discharge: 04/24/18 Hospital Course and Treatment Operations: colectomy, - - exploratory laparotomy Summary of Care Provided: The patient is a 73 year old M with an obstructing large sigmoid colon cancer. He had 40 pound weight loss The patient underwent a laparoscopic converted to open low anterior resection/sigmoidectomy with splenic flexure mobilization and appendectomy for large fungating sigmoid mass on April 08, 2018 laboratory studies demonstrate a slight decrease in hemoglobin, consistent with the expected blood loss from this complicated surgery. Patient's white blood cell count elevated. WBC count normalized NG tube removed, patient vomited last night POD 3 Xray demonstrated a mild ileus pattern and a small abmount of free air. afebrile but WBC count increasing - CT scan with oral contrast yesterday did not demonstrate a leak or abscess. patient with more flatus and liquid stools. Restarted clears. change to oral pain medications. urine clearing- appropriate I&O's Will encourage out of bed in chair and ambulation and use of incentive spirometry. We'll maintain SCDs with Lovenox due to risk of DVT Will discharge to home on POD # 6 He returned on April 17 with a fascial dehiscence. He underwent exploratory laparotomy and wound closure. CT scan demonstrated no leak. He was started on antibiotics - ceftriaxone/flagyl for levaquin resistant E. coli. He has been afebrile and advancing his diet. Discharge Diet: No Restrictions, - Discharge Activity: Return to Normal Activity May shower in (days): 0 - cover arm for shower Weight Bearing Status: Full weight bearing Call your doctor if your incision/area has: Continuous Slow Oozing Change Dressing in (Days):: 0 Additional Dressing/Incision Instructions:: moist to dry dressing twice a day Home Medications: Medications to take at Discharge Lisinopril [Zestril] 20 mg PO DAILY 03/12/14 Metoprolol(XL)Succ [Toprol Xl (Beta Priscilla)] 50 mg PO DAILY 03/12/14 Ibuprofen [Motrin] 400 mg PO Q4H PRN PRN tablet 04/14/18 Oxycodone [Oxyir] 5 mg PO Q4H PRN PRN 7 Days #12 tab 04/14/18 Prochlorperazine Maleate [Compazine] 5 mg PO 4X/DAY PRN PRN #10 tab 04/14/18 Enoxaparin [Lovenox] 40 mg SC DAILY syringe 04/24/18 Ensure Clear 120 ml PO 4X/DAY liquid 04/24/18 Ibuprofen [Motrin] 400 mg PO Q4H PRN PRN tablet 04/24/18 Insulin Human 70/30 [Novolog Mix 70-30 Flexpen Syrn] 18 units SC Q12 flexpen 04/24/18 Insulin Lispro [Humalog KwikPen] See Protocol SC Q6 insuln.pen 04/24/18 Primary Care Physician: Teo Monsalve MD [Primary Care Provider] - Please Follow Up With: Wilmer Tirado MD When: April 30 in my office Medical Necessity - Tobacco Use Smoking Status: Never smoker Meaningful Use Info Meaningful Use Diagnoses (Choose all that apply): None applicable
[2018-04-24 06:48] LABS: ALB/GLOB Ratio 0.4 RATIO (0.9-2.4); AST(SGOT) 48 U/L (15-37); Alanine Aminotransfer ALT/SGPT 35 U/L (16-61); Albumin, Serum 1.9 g/dL (3.2-5.0); Alkaline Phosphatase 108 U/L (45-117); Anion Gap 6 (5-15); BUN 12 mg/dL (7-18); BUN/Creat Ratio 17.2 RATIO (10-20); Chloride 106 mmol/L (98-107); EST Glomerular Filtration Rate 118 mL/min (>60); Est Glom Filt Rate - Afr Amer 143 mL/min (>60); Estimated Creatinine Clearance 60.26 ml/min; Globulin 4.3 g/dL (2.2-4.2); Glucose 134 mg/dL (74-106); Phosphorus 3.2 mg/dL (2.5-4.9); Potassium 3.9 mmol/L (3.5-5.1); Prealbumin 15.2 mg/dL (20.0-40.0); Protein, Total 6.2 g/dL (6.4-8.2); Sodium Level 142 mmol/L (136-145)
[2018-04-24] MEDS: Lactated Ringers 1,000 ML 100 ML IV ×2 (06:53→17:09)
[2018-04-24 07:06] LABS: Bedside Glucose 141 mg/dL (70-110)
[2018-04-24 08:30] VITALS: BP 127/82; PULSE 76; RESP 18; TEMP 37.2; O2SAT 97
--- NOTE | 2018-04-24 09:30 | CASEMGMT ---
Social Work Note Pt confirmed that he wishes to still discharge to SNF. SW received message from Alina at [facility] stating that she didn't get referral. SW refaxed referral to Alina at [facility]. Plan: [facility] pending acceptance and pre-cert Joann Mathew SENIOR FINANCIAL ACCOUNTANT, RETAIL ASSISTANT MANAGER
[2018-04-24] MEDS: Lisinopril 20 MG Tablet PO (10:22)
[2018-04-24] MEDS: Enoxaparin 40 MG/0.4 ML Syringe SC (10:22)
[2018-04-24 10:32] VITALS: PULSE 81
[2018-04-24] MEDS: Metoprolol(XL)Succ 50 MG Tablet PO (10:32)
--- NOTE | 2018-04-24 11:39 | CASEMGMT ---
Social Work Note SW returned phone call to Alina at [facility]. Alina states that the summer sessions director is reviewing referral and she will give this worker a call back once summer sessions director reviews referral. Plan: [facility] pending acceptance and pre-cert Joann Mathew AB INITIO ETL DEVELOPER, SENIOR PRODUCTION MANAGER
[2018-04-24 12:16] LABS: Bedside Glucose 174 mg/dL (70-110)
--- NOTE | 2018-04-24 12:52 | CASEMGMT ---
Social Work Note SW received message from Alina at [facility] stating that she is able to accept pt and she has submitted for pre-cert. Plan: [facility] pending pre-cert Joann Mathew LAUNDRY TECHNICIAN, TRANSPORT AIDE
[2018-04-24] MEDS: Insulin Lispro 100 UNIT/ML INSULN.PEN SC (13:11)
--- NOTE | 2018-04-24 13:46 | CASEMGMT ---
Social Work Note SW received message from Alina at [facility] stating that pt's insurance is requesting OT evaluations. V[place]IA ordered OT evaluations and will fax OT evaluations when available. Plan: [facility] pending pre-cert Joann Mathew INSURANCE ADMINISTRATIVE ASSISTANT, GUITAR MAKER
--- NOTE | 2018-04-24 14:22 | CASEMGMT ---
Social Work Note Pt's Aretha requesting to speak to this worker. Aretha states that she heard about the new detention [facility]. SW informed Aretha that [facility] are not in network with pt's insurance. Aretha states understanding. SW informed Aretha that [facility] in [place] has accepted pt and we are waiting for pre-cert from pt's insurance. SW informed Aretha that pt was willing to go to any SNF that could accept him. Aretha states understanding. Plan: [facility] pending pre-cert Joann Mathew ORGANIC CHEMISTRY TEACHER, TOUR GUIDE
[2018-04-24 14:30] VITALS: BP 110/67; PULSE 73; RESP 18; TEMP 37.2; O2SAT 97
--- NOTE | 2018-04-24 14:32 | CASEMGMT ---
Social Work Note SW faxed OT eval to Alina at [facility]. Plan: [facility] pending pre-cert Joann Mathew UPHOLSTERER HELPER, VP STRATEGIC PLANNING
[2018-04-24] MEDS: Fat Emulsions 20% 250 ML IV (17:11)
[2018-04-24 18:01] LABS: Bedside Glucose 132 mg/dL (70-110)
[2018-04-24 20:15] VITALS: BP 121/75; PULSE 69; RESP 16; TEMP 37.1; O2SAT 95
[2018-04-24 22:26] LABS: Bedside Glucose 216 mg/dL (70-110)
[2018-04-25] VITALS: BP 128/81; PULSE 74; RESP 16; TEMP 37.1; O2SAT 96
[2018-04-25] MEDS: Insulin Lispro 100 UNIT/ML INSULN.PEN SC ×3 (00:03→12:00)
[2018-04-25 00:11] LABS: Bedside Glucose 174 mg/dL (70-110)
[2018-04-25] MEDS: Lactated Ringers 1,000 ML 100 ML IV (03:00)
[2018-04-25 05:45] VITALS: BP 121/71; PULSE 79; RESP 16; TEMP 37.2; O2SAT 95
[2018-04-25 05:56] LABS: Bedside Glucose 211 mg/dL (70-110)
[2018-04-25] MEDS: Enoxaparin 40 MG/0.4 ML Syringe SC (10:15)
[2018-04-25] MEDS: Lisinopril 20 MG Tablet PO (10:15)
[2018-04-25 10:27] VITALS: PULSE 83
[2018-04-25] MEDS: Metoprolol(XL)Succ 50 MG Tablet PO (10:27)
--- NOTE | 2018-04-25 10:30 | CASEMGMT ---
Addendum entered by Joann Mathew 04/25/18 11:32: SW placed a call to both [facility] and [facility] both states that they won't have staffing available till next week. [place] placed a call to Earlene with [facility] and provided referral. Earlene states that she is able to accept pt and can start care on Sunday. [place]IA informed Earlene that pt is teachable and has been assisting with his wound care and also has a at home as well. V[place]IA put in C referral. SW in to update pt of this but pt was soundly sleeping and didn't awake when this worker called pt's name. [place] placed a call to Alina at [facility] and left her a message and updated her to cancel pre-cert as pt will be going home with [facility] now. Original Note: Social Work Note Pt is requesting to speak to this worker. Dr. Tirado is discontinuing TPN today. SW in to speak with pt. [place] informed pt that Dr. Tirado is discontinuing TPN today and at this time pt is needed dressing changes 2x daily. Pt states that he has been helping the nurses do his dressing changes and is agreeable to [facility]. SW informed pt that [facility] would only come in about once or twice a week and teach either pt or family member how to do dressing changes. Pt states understanding and is agreeable to [facility] referral being made. This worker will work on [facility]. Plan: Pt to discharge home with [facility] Joann Mathew OPERATIONS CHIEF, ELEMENTARY SCHOOL REGISTRAR
[2018-04-25 11:45] VITALS: BP 124/67; PULSE 83; RESP 18; TEMP 37.1; O2SAT 97
[2018-04-25 11:45] LABS: Bedside Glucose 254 mg/dL (70-110)
--- NOTE | 2018-04-25 12:21 | CASEMGMT ---
Social Work Note V[place]IA received message from Jo with [employer] asking for updated clinicals for pt as she is working on authorization for SNF. Jo provided direct number at [phone] ext. [phone]. V[place]IA placed a call back to Jo and let her a message informing her that pt will be discharged home with C and not going to a SNF. Joann Mathew FOREIGN CAR MECHANIC, ROLL PLUGGER MACHINE OPERATOR
--- NOTE | 2018-04-25 12:59 | PCM.PN.SRG ---
Subjective: tolerating diet. Drink 3 cans of an sure yesterday, more bowel movements more flatus - Physical Exam General: Alert, Oriented x3, Cooperative Lungs: Clear to auscultation, Normal air movement Cardiovascular: Regular rate, No murmurs Abdomen: Bowel Sounds Present, Soft, Non Tender, - - dressing changed with good granulation tissue Vital Signs Temp Pulse Resp BP Pulse Ox 98.9 F 83 16 121/71 H 95 04/25/18 05:45 04/25/18 10:27 04/25/18 05:45 04/25/18 05:45 04/25/18 05:45 Oxygen Flow Rate (L/min) 0.5 Oxygen Delivery Method Room Air Weight: 70.5 kg Body Mass Index (BMI) 24.5 Intake and Output for Last 24 Hours 04/23/18 04/24/18 04/25/18 23:59 23:59 23:59 Intake Total 4669 / 4669 6719 / 6719 1158 / 1158 Output Total 1400 / 1400 Balance 3269 / 3269 6719 / 6719 1158 / 1158 Microbiology Past 72 Hours 04/17/18 14:10 Gram Stain - Final Tissue - Abdominal Wound Culture - Final Escherichia coli Anaerobic Culture - Final No anaerobic bacteria isolated. POC Glucose 04/25/18 04/25/18 04/25/18 11:33 05:40 00:01 POC Glucose 254 H 211 H 174 H 04/24/18 04/24/18 22:19 17:57 POC Glucose 216 H 132 H Medical Necessity - Tobacco Use Smoking Status: Never smoker Assessment/Plan postoperatively #/16. Status post exploratory laparotomy, reclosure of fascial dehiscence, status post open sigmoid resection with splenic flexure mobilization for large bulky tumor. pathology returned as a 4 cm tumor with 6 out of 31 lymph nodes positive, the largest being a 1.2 cm metastatic nodule. All margins were felt to be appropriate with the closest radial margin 1.5 cm. There was significant. Colonic and peritumoral inflammation along with what was felt to be diverticulitis explaining how the actual pelvic mass was much larger than the tumor size fortunately. 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 fascial dehiscence-patient had significant fluid output on Sunday from the inferior aspect of the incision which was felt to be a subcutaneous infection. With reevaluation of the last 2 days. This was then felt to be truly a dehiscence. He was taken to the OR yesterday, had exploration. Inspection into the pelvis did not completely demonstrate the anastomosis but noted no bile staining or collections worrisome for an anastomotic leak. CT scan obtained on Sunday and the no signs of a leak. Patient's fascia was closed with interrupted 0 Prolene [id number] sutures and wound, left back area. Wound appears to be granulating this morning with no further complications noted. We'll continue twice a day packing. he note improved passing flatus. He has improved bowel sounds. advanced to regular diet and tolerated overnight. We'll obtain calorie counts and asked for suggestions for nutritional supplementation. Given starvation and deconditioning malnutrition-patient had lost 40 pounds prior to surgery. He had just started retaking orals on Sunday. After talking to his , she notes that he really had poor oral intake, Sunday, Sunday and Sunday. given the history of malnutrition and now postoperative lack of adequate oral nutrition, we will place PICC line and start TPN, even given the risks. repeat laboratory studies demonstrated improved prealbumin. At this point in time,his oral intake has improved. He is also noting swelling of his right arm. So at this point in time I plan to discontinue the TPN and remove the PICC line.. History of tobacco use.-Patient was using chewing tobacco. Prior to surgery last week. We'll have his encourage patient not to use chewing tobacco or nicotine products throughout this competent healing process. VTE prophylaxis-SCDs and Lovenox, given history of malignancy. patient notes improved overall pain. Will encourage patient to use oral OxyIR, if tolerating pain will DC [employer] leukocytosis-postoperatively only obvious abnormality was bilateral atelectasis. Patient with fever over the weekend and mildly elevated white count. We will follow white blood cell count, no signs of anastomotic leak at surgery, no urinary complaints. We will encourage incentive spirometry use. We'll encourage sitting up in a chair and ambulation. culture GNR. - Escherichia coli-resistant to Levaquin, changed to ceftriaxone and Flagyl. Will have physical therapy assist in reconditioning.
[2018-04-25] MEDS: 0.9% NaCl Peripheral Flush Adult/Peds IV (15:40)
== END 2018-04-25 16:26 | disposition home health service (06) | DRG 907 ==
LOC: MS3 04-18 07:57
PROVIDERS: Admitting Provider Surgery; Family Provider Family Medicine; PCP Family Medicine; Visit Provider Surgery
PROC: 0WJJ0ZZ Inspection of Pelvic Cavity, Open Approach (ICD-10-PCS; CPT 49000; principal; 2018-04-17 17:15)
DX: T81.32XA Disruption of internal operation (surgical) wound, not elsewhere classified, initial encounter (principal); E43 Unspecified severe protein-calorie malnutrition; C18.7 Malignant neoplasm of sigmoid colon; J98.11 Atelectasis; Y83.8 Other surgical procedures as the cause of abnormal reaction of the patient, or of later complication, without mention of misadventure at the time of the procedure; Z90.49 Acquired absence of other specified parts of digestive tract; Z87.891 Personal history of nicotine dependence; Z16.23 Resistance to quinolones and fluoroquinolones; E11.9 Type 2 diabetes mellitus without complications; I10 Essential (primary) hypertension; D72.829 Elevated white blood cell count, unspecified; B96.20 Unspecified Escherichia coli [E. coli] as the cause of diseases classified elsewhere
CPT/HCPCS: 36415; 36569; 74177; 80048; 80053; 80076; 82962; 83735; 84100; 84134; 85025; 87070; 87075; 87077; 87186; 87205; 88304; 94762; 97116; 97162; 97165; 97530; 97802; 97803; 99285; 99406; J7120; Q9967; A4216; J0696; J1170; J2405

== ENCOUNTER → 2019-03-10 | Outpatient (CLI) | payer MEDICARE, SELFPAY ==
[2019-04-09 09:54] LABS: Miscellaneous Lab Procedure SEE PATH
== END | disposition home or self-care (01) ==
PROVIDERS: PCP Surgery; Visit Provider Internal Medicine Hematology & Oncology
DX: C18.7 Malignant neoplasm of sigmoid colon (principal)

== ENCOUNTER → 2019-03-18 | Outpatient (CLI) | payer MEDICARE, SELFPAY ==
[2018-04-17 17:20] VITALS: BMI 24.5
[2019-03-18] VITALS (10 sets, daily range): BP systolic 92–148; BP diastolic 39–71; PULSE 55–68; RESP 15–24; TEMP 37.2; O2SAT 18–97; BMI 28.2
--- NOTE | 2019-03-18 | ASPIGT_PTH ---
PATIENT: FREDO EMANUEL LOC: CT U#:[id number] AGE/SX: 74/M ROOM: RE03/18/[address]: Dr. Carl Tang DO : 1945 BED: DIS: 03/18/2019 SPEC #: [id number] RECD: 03/18/19 11:16 STATUS: LORRAINE MELISSA #: [id number] ROSETTA: 03/18/19 00:[address]: Carl Tang DEPT: SURGICAL PATHOLOGY RECD BY: Deanne Anderson ENTERED: 03/18/19 11:16 SP TYPE: ASP RAD MAYLIN DR: MD Teo Vega Tissues: Liver, NOS Procedures: FNA Specimen Adequacy Special Stain Group II Surgery Specimen Level IV Imprint (control) HEADER OPERATION: CT guided liver biopsy PRE-OP DIAGNOSIS: Liver lesion TISSUE SUBMITTED: Right lobe of liver, CT guided core biopsy MICROSCOPIC DIAGNOSIS Right lobe of liver, lesion, CT-guided core biopsy: 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 Carcinoma involves 2 out of 3 needle core biopsies. Tumor dimensions 1.4 cm and 1.3 cm. See comment. CE:megan 03/19/19 COMMENT The specimen is evaluated at the time of biopsy by Dr. Remy. Immediate Evaluation = Adequate for evaluation. Atypical cells noted. 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 The current liver lesion is most consistent with metastasis from this site. MICROSCOPIC DESCRIPTION Slides are reviewed. GROSS DESCRIPTION Received in fixative is one container labeled with the patient's name and designated right lobe of liver, CT-guided core biopsy. The specimen consists of three elongated fragments of leyva soft tissue measuring 2 to 2.5 cm in length and 0.1 cm in diameter. The specimen is totally submitted in one cassette. One touch imprint is prepared at the time of core biopsy. / SJ:megan 03/18/19 TC:0 CPT: 82924, 21136
--- NOTE | 2019-03-18 | IMM_PTH ---
PATIENT: FREDO EMANUEL LOC: CT U#:[id number] AGE/SX: 74/M ROOM: RE03/18/[address]: Dr. Carl Tang DO : 1945 BED: DIS: 03/18/2019 SPEC #: [id number] RECD: 03/20/19 09:05 STATUS: LORRAINE REQ #: [id number] ROSETTA: 03/18/19 00:[address]: Carl Tang DEPT: IMMUNOHISTOCHEMISTRY RECD BY: Estelle Sanches ENTERED: 03/20/19 09:08 SP TYPE: IMMUNO OTHR DR: MD Teo Vega Tissues: Liver, NOS Procedures: Synapto (add) CD56 (add) CHROMO (add) CK20 (add) CDX2 (add) CK7 (initial) PHYSICIAN & INSTITUTION [place] [id number] SPECIMEN INFORMATION: Tissue Source: Right lobe of liver, CT-guided core biopsy Clinical Info: Liver lesion Specimen Number: [id number] CPT code: 63681, 88586 x5 METHODOLOGY: Deparaffinized sections of prefer/formalin-fixed tissue or PAP/DQ stained slides are incubated with monoclonal/polyclonal antibodies/oligonucleotide probes. Localization is made via biotin free immunoperoxidase method. Appropriate controls are performed and reacted as expected. Results on target cell population are indicated in the following table: RESULTS: ANTIBODY / CLONE RESULT CK7 (OV-TL12/30) negative CK20 (KS20.8) positive CD56 (123C3.D5) positive, focal Chromo (LK2H10) positive, focal Synapto (polyclonal) positive, focal CDX2 ([id number]) positive These tests were developed and their performance characteristics determined by [facility]. They may not have been cleared or approved by the U.S. Food and Drug Administration. The FDA has determined that such clearance or approval is not necessary. 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 CE:megan 03/20/19
--- NOTE | 2019-03-18 09:08 | CT_ITS ---
PROCEDURE: CT DIRECTED CORE LIVER BIOPSY INDICATION: Male, 74 years old. Colon cancer and liver metastasis. PHYSICIAN: Dr. Pedicelli. Allen CONSENT: Written informed consent was obtained having explained the risks, benefits and alternatives in detail with the patient who accepted the risks and agreed to proceed. Laboratory review and clinical assessment was performed. CONSCIOUS SEDATION PROTOCOL: The Drugs used were: 2 mg Versed, IV., and 50 mcg Fentanyl, IV. The sedation time was: 40 minutes. The conscious sedation protocol was independently monitored. RADIATION DOSAGE (If Supplied By Facility): CTDIvol = ( 15.3 ) mGy, DLP = ( 389.2 ) mGycm Individualized dose optimization techniques were used for this CT. TECHNIQUE: Using CT image guidance with image documentation, a suitable location in the right lobe of the liver was identified. Using a right lateral approach, puncture of the liver was uneventful with an 18-gauge core needle system. 3, 18-gauge core samples were obtained, and submitted in formalin to the pathologist for further assessment. Followup CT scan revealed no distinct sequelae. CT/Biopsy/Inj or Needle Placement IMPRESSION: 1. CT directed core needle biopsy of the liver, using CT image guidance with image documentation as described. 2. Conscious Sedation protocol utilized with independent monitoring. Electronically Signed: Soren Tabares, at 12:25 EDT , Service support ,
[2019-03-18 09:12] LABS: Platelet Count 154 K/mm3 (150-450)
[2019-03-18 09:42] LABS: International Normalized Ratio 1.2; Prothrombin Time (Protime)PT. 14.5 SECONDS (11.7-14.9)
[2019-03-18] MEDS: Midazolam 2 MG/2 ML Syringe IV (10:02)
[2019-03-18] MEDS: fentaNYL 100 MCG/2 ML Ampul IV (10:07)
== END | disposition home or self-care (01) ==
PROVIDERS: PCP Family Medicine; Referring Provider Internal Medicine Hematology & Oncology; Visit Provider Internal Medicine Hematology & Oncology
DX: C78.7 Secondary malignant neoplasm of liver and intrahepatic bile duct (principal); C18.7 Malignant neoplasm of sigmoid colon; C77.2 Secondary and unspecified malignant neoplasm of intra-abdominal lymph nodes; R79.1 Abnormal coagulation profile; I10 Essential (primary) hypertension; E11.9 Type 2 diabetes mellitus without complications; Z79.4 Long term (current) use of insulin; Z79.899 Other long term (current) drug therapy
CPT/HCPCS: 47000; 36415; 77012; 85049; 85610; 88172; 88305; 88307; 88313; 88341; 88342; 99156; 99157; J7040; A4216

== ENCOUNTER 2019-03-21 00:19 | Emergency (ER) | payer MEDICARE, SELFPAY ==
[2019-03-18 09:15] VITALS: BMI 28.2
[2019-03-21 00:20] VITALS: BP 144/80; PULSE 87; RESP 16; TEMP 36.7; O2SAT 96; BMI 28.2
--- NOTE | 2019-03-21 00:44 | CT_ITS ---
STUDY: CT ABDOMEN AND PELVIS WITHOUT CONTRAST REASON FOR EXAM: Male, 74 years old. LLQ PAIN SINCE TODAY, HX COLON CA WITH RESECTION AND CHEMO, PORT IN PLACE, RECURRENT COLON CA RECENTLY, APPY, LIVER BIOPSY ON SUNDAY RADIATION DOSAGE (If Supplied By Facility): CTDIvol = ( 8.42 ) mGy, DLP = ( 416.40 ) mGycm TECHNIQUE: Transaxial images were obtained from the dome of the diaphragm to the symphysis pubis without oral contrast, and without intravenous contrast. Sagittal and coronal images were reconstructed. Individualized dose optimization techniques were used for this CT. COMPARISON: 04/15/2018 FINDINGS: The visualized lung bases are unremarkable. The visualized portions of the heart are within normal limits. Multiple decrease attenuation lesions are seen in the liver are new since the previous study are consistent with metastatic lesions the largest measures 4 cm. There are surgical clips in the gallbladder fossa consistent with a prior cholecystectomy. Normal spleen. Normal pancreas. Normal bilateral adrenal glands. Right kidney stone measures 4 mm without hydronephrosis. There is a cyst in the left kidney measures 2 cm. Normal visualized stomach. Normal small intestine. There is diverticulosis, with thickening of the descending and sigmoid colon wall, and pericolonic inflammation changes consistent with acute diverticulitis. There are surgical clips in the region of the appendix consistent with a prior appendectomy. Normal abdominal aorta. Normal inferior vena cava. Normal retroperitoneum. Normal urinary bladder. Normal abdominal wall. Normal osseous structures. CT/Abdomen/Pelvis without Cont IMPRESSION: Diverticulitis of the descending and sigmoid colon. Multiple metastatic lesions in the liver largest measures 4 cm. Right kidney stone measures 4 mm without hydronephrosis. Electronically Signed: Jany Carreno, at 3:37 EDT Tel , Service support ,
[2019-03-21 00:54] LABS: Bacteria 0 SEEN /hpf (None Seen); Squamous Epithelial Cells - UA 0 SEEN /hpf (0-5)
[2019-03-21 00:55] LABS: Color, Urine Yellow (Yellow); Glucose, Dipstick Normal (Normal); Ketone-Dipstick Negative (Negative); Leukocyte Esterase-Dipstick 25 /ul (Negative); Nitrite-Dipstick Negative (Negative); Occult Blood-Urine 50 /ul (Negative); Protein-Dipstick 15 mg/dl (Negative); Urine Bilirubin Dipstick Negative (Negative); Urine Clarity Clear (Clear); Urine Urobilinogen 1 mg/dl (Normal)
[2019-03-21] MEDS: Morphine 4 MG/ML Syringe IV ×2 (01:00→02:20)
[2019-03-21] MEDS: Ondansetron 4 MG/2 ML Vial IV (01:01)
[2019-03-21 01:12] LABS: Absolute Lymphocyte Count 1.41 X10^3/ul (0.83-4.51); Absolute Neutrophil Count 6.1 X10^3/uL (2.0-7.7); Basophil# 0.03 X10^3/uL; Basophil% 0.3 % (0-1); Eosinophil# 0.21 X10^3/uL; Eosinophils% 2.3 % (0-5); Hematocrit 39.1 % (40-54); Hemoglobin 12.6 g/dl (13.0-16.5); Lymphocyte # 1.41 X10^3/ul (4.0); Lymphocyte % 15.8 % (19-41); Mean Corp Hgb Conc 32.2 g/gl (32-36); Mean Corpuscular Hgb 27.5 pg (27.0-32.0); Mean Corpuscular Volume 85.4 fL (80-94); Monocyte# 1.12 X10^3/uL; Monocyte% 12.5 % (0-10); Neutrophil # 6.09 X10^3/uL (2.7-7.7); Neutrophil % 68.2 % (47-70); Platelet Count 150 K/mm3 (150-450); RBC Distribution Width CV 14.5 % (11.6-14.6); Red Blood Count 4.58 M/mm3 (4.6-6.2); White Blood Count 8.9 K/mm3 (4.4-11.0)
[2019-03-21 01:13] LABS: Red Blood Cells-Urine 0-5 SEEN /hpf (0-5); White Blood Cells 0-5 SEEN /hpf (0-5)
[2019-03-21 01:13] LABS: POSITIVE COUNT NO; POSITIVE DIFFERENTIAL NO; POSITIVE MORPHOLOGY NO
[2019-03-21 01:14] LABS: Mucous, Urine 1+ /hpf (<or=2+)
[2019-03-21 01:24] LABS: ALB/GLOB Ratio 0.7 RATIO (0.9-2.4); AST(SGOT) 69 U/L (15-37); Alanine Aminotransfer ALT/SGPT 58 U/L (16-61); Albumin, Serum 3.2 g/dL (3.2-5.0); Alkaline Phosphatase 352 U/L (45-117); Anion Gap 7 (5-15); BUN 22 mg/dL (7-18); Calcium,Total 8.9 mg/dL (8.5-10.1); Chloride 105 mmol/L (98-107); Creatinine, Serum 0.88 mg/dL (0.70-1.30); EST Glomerular Filtration Rate 90 mL/min (>60); Est Glom Filt Rate - Afr Amer 109 mL/min (>60); Estimated Creatinine Clearance 67.47 ml/min; Globulin 4.6 g/dL (2.2-4.2); Glucose 102 mg/dL (74-106); Potassium 3.8 mmol/L (3.5-5.1); Protein, Total 7.8 g/dL (6.4-8.2); Sodium Level 139 mmol/L (136-145)
[2019-03-21 02:30] VITALS: PULSE 83; RESP 16; O2SAT 91
--- NOTE | 2019-03-21 03:44 | ED.VISSUMM ---
- ER Visit Summary Date of Service: 03/21/19 Chief Complaint: Abdominal pain History of Present Illness: The patient is a 74 M who presents with flank pain. This began about 5 hours before presentation. He rates it as severe. No exacerbating or relieving factors. He denies any nausea vomiting diarrhea dysuria frequency urgency. No radiation. He did have a liver biopsy on March 18. He has a history of colon cancer. He completed chemotherapy in November. Recent imaging showed hepatic lesions which is why he had the biopsy. He denies any fevers. Physical Examination: Afebrile vitals unremarkable No distress Heart regular rate and rhythm Lungs clear Abdomen soft nondistended he does have left flank tenderness no guarding no rebound Alert Test Results: Labs notable for hemoglobin 12.6, alkaline phosphatase 352, AST 69. Urinalysis unremarkable. CT of the abdomen pelvis shows diverticulitis of the descending and sigmoid colon. Emergency Department Course and Treatment: Patient was given IV fluids morphine Zofran. Morphine controlled his pain but he did have recurrent pain and was given a second dose of morphine. The patient does not have fever or leukocytosis. His diverticulitis appears to be uncomplicated without perforation or abscess. I discussed hospitalization if needed for pain control but he does prefer to go home. He was given first dose of Cipro and Flagyl here as well as prescriptions for the same and a prescription for short course of Bowie. He understands to return for new or worsening symptoms and the patient was discharged home. Treatment Plan: [] Disposition: Discharge Impression: Diverticulitis This note was generated with [employer] dictation software. It may contain incorrect words, spelling, and punctuation that were not noted in review of the chart prior to signing ED Disposition - Plan for ED Patient: Referrals: Teo Monsalve MD [Primary Care Provider] -
--- NOTE | 2019-03-21 03:46 | DCINST.ED_ITS ---
ED Disposition - Plan for ED Patient: Instructions: Diverticulitis Prescriptions: Ciprofloxacin [Cipro] 500 mg PO BID #20 tab Prescription Printed metroNIDAZOLE [Flagyl] 500 mg PO Q8H #28 tab Prescription Printed Hydrocodone Bitart/Apap 5-325 [[place] 5MG-325MG] 1 tab PO Q6H PRN PRN 3 Days #10 tab PRN Reason: Pain Prescription Printed Referrals: Teo Monsalve MD [Primary Care Provider] -
[2019-03-21] MEDS: metroNIDAZOLE 500 MG Tablet PO (03:48)
[2019-03-21] MEDS: Ciprofloxacin 500 MG Tablet PO (03:48)
== END 2019-03-21 03:50 | disposition home or self-care (01) ==
LOC: ED 01:33
PROVIDERS: Emergency Provider Emergency Medicine; PCP Family Medicine
DX: K57.32 Diverticulitis of large intestine without perforation or abscess without bleeding (principal); E11.9 Type 2 diabetes mellitus without complications; I10 Essential (primary) hypertension; Z87.442 Personal history of urinary calculi; Z85.038 Personal history of other malignant neoplasm of large intestine; Z92.21 Personal history of antineoplastic chemotherapy; Z79.899 Other long term (current) drug therapy
CPT/HCPCS: 74176; 80053; 81001; 85025; 96374; 96375; 96376; 99285; A4216; J2405

== ENCOUNTER 2019-04-05 08:59 | Emergency (ER) | payer MEDICARE, SELFPAY ==
[2019-04-05 09:00] VITALS: BP 147/95; PULSE 94; RESP 18; TEMP 36.8; O2SAT 95; BMI 27.0
--- NOTE | 2019-04-05 09:18 | RAD_ITS ---
STUDY: X-RAY - RIGHT SHOULDER REASON FOR EXAM: Male, 74 years old. Pain TECHNIQUE: 4 view(s) of the shoulder. COMPARISON: None. FINDINGS: Normal glenohumeral articulation. Normal acromioclavicular joint. Normal acromion. Normal humeral head and visualized proximal humerus. Lateral soft tissue calcification may be related to calcific tendinopathy. Normal visualized pulmonary apex. RAD/Shoulder min 2 Views IMPRESSION: Possible calcific tendinopathy of the shoulder. Electronically Signed: Yo Seals DO at 10:12 EDT Tel [phone], Service support ,
[2019-04-05] MEDS: Ondansetron ODT 4 MG Tablet PO (09:45)
[2019-04-05] MEDS: Morphine 4 MG/ML Syringe IM (09:46)
--- NOTE | 2019-04-05 10:50 | ED.VISSUMM ---
- ER Visit Summary Date of Service: 04/05/19 Chief Complaint: [Pain to right shoulder] History of Present Illness: The patient is a 74 M [the emergency department with right shoulder pain at around 2 AM's morning. Patient states the pain came on gradually. Patient denies any trauma. He denies any chest pain. Denies any shortness of breath.] Patient does have history of colon cancer with liver metastasis. Patient finished chemotherapy in November 2018 but is scheduled to start again as he has had recurrence of his disease. States the pain is worse with movement. Patient states that he had weakness in the right arm secondary of the pain in he took a Percocet which seemed to help the pain a little bit. Physical Examination: HEENT-PERRLA, EOMI. Cranial nerves II through XII grossly intact. TMs clear. Mucous membranes moist. No adenopathy. Cardiovascular-regular rate and rhythm without murmur or ectopy Lungs-clear to auscultation, chest wall stable without crepitus or subcu emphysema Abdomen-normoactive bowel sounds, soft, nontender, no rebound or rigidity, no peritoneal signs. Extremities-intact ?4, normal range of motion, normal pulses, atraumatic [. Right arm-patient has tenderness over the left bicep tendon that reproduces his pain. Patient has pain with range of motion of the shoulder. Decreased ability to put his arm behind his back secondary to pain. Patient has weakness when I attempt to internally rotate his arm. He is neurovascular intact distally.] Test Results: [X-rays of the right shoulder showed calcific tendinitis and degenerative changes.] Emergency Department Course and Treatment: [Given morphine and Zofran and had good pain relief with that. Patient was given a sling.] Treatment Plan: [Will be given a perception for Percocet. Referral to orthopedics.] Disposition: [Discharged home stable condition.] Impression: [Shoulder pain-tendinitis] This note was generated with [employer] dictation software. It may contain incorrect words, spelling, and punctuation that were not noted in review of the chart prior to signing ED Disposition - Plan for ED Patient: Referrals: Teo Monsalve MD [Primary Care Provider] -
--- NOTE | 2019-04-05 11:06 | ED.DEP ---
ED Disposition - Plan for ED Patient: Instructions: Tendonitis, SHOULDER PAIN (Uncertain Cause) Prescriptions: Oxycodone HCl/Acetaminophen [Percocet 5/325] 1 tab PO Q6H PRN PRN 5 Days #20 tab PRN Reason: Pain Prescription Printed Referrals: Teo Monsalve MD [Primary Care Provider] - Bayron Martinez DO [STAFF PHYSICIAN] - 3-5 Days
[2019-04-05 11:19] VITALS: BP 138/77; PULSE 62; RESP 17; O2SAT 96
== END 2019-04-05 11:20 | disposition home or self-care (01) ==
PROVIDERS: Emergency Provider Emergency Medicine; PCP Family Medicine
DX: M75.91 Shoulder lesion, unspecified, right shoulder (principal); C18.9 Malignant neoplasm of colon, unspecified; C78.7 Secondary malignant neoplasm of liver and intrahepatic bile duct; Z90.49 Acquired absence of other specified parts of digestive tract
CPT/HCPCS: 73030; 96372; 99283

== ENCOUNTER 2019-06-04 16:03 | Emergency (ER) | payer MEDICARE, SELFPAY ==
[2019-06-04 16:04] VITALS: BP 139/77; PULSE 114; RESP 17; TEMP 36.7; O2SAT 96; BMI 23.7
--- NOTE | 2019-06-04 16:18 | RAD_ITS ---
STUDY: X-RAY - UNILATERAL RIBS ( LEFT ) WITH CHEST REASON FOR EXAM: Male, 74 years old. Left rib pain after falling. TECHNIQUE - RIBS: 4 view(s) of the ribs. TECHNIQUE - CHEST: 1 view COMPARISON: None. FINDINGS - RIBS: Negative for acute fracture deformity. FINDINGS - CHEST: Left subclavian Port-A-Cath ends in the distal superior vena cava. The lungs are clear and expanded. There is no demonstrated pleural abnormality. Normal size heart. Normal mediastinum and christiane. Normal visualized pulmonary arteries. There is atherosclerotic calcification of the aortic arch with tortuosity. There is no demonstrated abnormality of the visualized soft tissue structures of the upper abdomen. RAD/Ribs Uni Min 3V w/PA Chest IMPRESSION: RIBS: Negative for acute rib fracture. CHEST: No acute cardiopulmonary findings. Left subclavian Port-A-Cath ends in the distal superior vena cava. Electronically Signed: Denice Knight MD at 16:52 EDT , Service support ,
--- NOTE | 2019-06-04 16:22 | ED.DCSUM_ITS ---
- ER Visit Summary Date of Service: 06/04/19 Chief Complaint: Fall History of Present Illness: The patient is a 74 M presenting after mechanical fall. This occurred yesterday. Patient states he was moving a grill in his garage. He states the grill hit a basket with a basketball in it and the basketball fell out of the basket and started rolling. He went to reach for the basketball and he fell onto his left side. He did not hit his head or lose consciousness. He is not on anticoagulants. He has been able to ambulate. He complains of left sided rib pain and mild left hip pain. Denies other complaints. Physical Examination: Vitals are stable. Patient is afebrile. Alert no acute distress. HEENT exam is unremarkable. Neck is nontender Lungs are clear and equal bilaterally. Left mid chest wall tenderness with no crepitus Heart is regular rate and rhythm. Abdomen is soft nontender nondistended. No guarding or rebound Extremities mild lateral left hip tenderness with active full range of motion Skin is warm and dry. Remainder of exam is unremarkable. Emergency Department Course and Treatment: X-ray left hip and left ribs show no acute process. Patient was given an incentive spirometer. He has pain medication at home. He is advised to follow-up with his primary care physician. Advised return to ED for worsening complaints. Disposition: Discharge home Impression: Left rib contusion, left hip contusion, status post mechanical fall This note was generated with [employer] dictation software. It may contain incorrect words, spelling, and punctuation that were not noted in review of the chart prior to signing ED Disposition - Plan for ED Patient: Instructions: Chest Wall Contusion Referrals: Teo Monsalve MD [Primary Care Provider] -
--- NOTE | 2019-06-04 16:30 | RAD_ITS ---
STUDY: X-RAY - PELVIS AND LEFT HIP REASON FOR EXAM: Male, 74 years old. Left hip pain after falling. TECHNIQUE: 3 views of the pelvis and hip. COMPARISON: None. FINDINGS: There is a non-specific bowel gas pattern. Normal visualized soft tissue structures. Normal bilateral iliac wings, sacroiliac joints and visualized sacrum. Normal bilateral superior and inferior pubic rami. Normal pubic symphysis. Normal bilateral ischial tuberosities. Normal visualized femoral head. Normal acetabulum. Normal hip joint. RAD/HIP, UNI W/ Pelvis 2-3 Views IMPRESSION: Normal x-ray examination of the pelvis and hip. Electronically Signed: Denice Knight MD at 16:50 EDT , Service support ,
[2019-06-04 16:52] VITALS: BP 125/94; PULSE 106; RESP 95; O2SAT 94
--- NOTE | 2019-06-04 17:25 | ED.DEP ---
ED Disposition - Plan for ED Patient: Instructions: Chest Wall Contusion Referrals: Teo Monsalve MD [Primary Care Provider] -
== END 2019-06-04 17:42 | disposition home or self-care (01) ==
PROVIDERS: Emergency Provider Emergency Medicine; PCP Family Medicine
DX: S20.212A Contusion of left front wall of thorax, initial encounter (principal); S70.02XA Contusion of left hip, initial encounter; W19.XXXA Unspecified fall, initial encounter; Y93.9 Activity, unspecified; Y92.9 Unspecified place or not applicable; I10 Essential (primary) hypertension; Z85.038 Personal history of other malignant neoplasm of large intestine; Z79.899 Other long term (current) drug therapy
CPT/HCPCS: 71101; 73502; 99283